=== PATIENT | female | born 1970 | race Caucasian/White ===

== ENCOUNTER 2016-12-05 15:50 | Emergency (ER) | payer OTHER ==
[2016-12-05 17:24] LABS: Hematocrit 28 % (35-47); Mean Corpuscular HGB Conc 32 g/dl (31-36); Mean Corpuscular Hemoglobin 27 pg (27-31); Mean Corpuscular Volume 83 fL (80-97); Mean Platelet Volume 10 um3 (7.4-10.4); Red Blood Count 3.39 10^6/ul (4.0-5.4); Red Cell Distribution Width 16 % (10.5-15); White Blood Count 8.3 10^3/ul (3.5-10.8)
[2016-12-05 18:37] LABS: Albumin 3.5 g/dL (3.2-5.2); BUN/Creatinine Ratio 23.9 (8-20); Calcium 9.2 mg/dL (8.6-10.3); EGFR African American 70.1 (>60); EGFR Non-African American 54.5 (>60); Globulin 3.4 g/dL (2-4); Potassium 4.7 mmol/L (3.5-5.0); Total Bilirubin 0.3 mg/dL (0.2-1.0); Total Protein 6.9 g/dL (6.4-8.9)
[2016-12-05 18:44] VITALS: BP 103/77
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
== END 2016-12-05 18:59 | disposition home or self-care (01) ==
LOC: ED 15:50
DX: R07.9 Chest pain, unspecified (principal); I10 Essential (primary) hypertension; Z79.82 Long term (current) use of aspirin; F17.210 Nicotine dependence, cigarettes, uncomplicated; J44.9 Chronic obstructive pulmonary disease, unspecified; K21.9 Gastro-esophageal reflux disease without esophagitis; Z88.0 Allergy status to penicillin
CPT/HCPCS: 36415; 80053; 84484; 85025; 93005; 99283

== ENCOUNTER 2016-12-11 07:16 | Day surgery (SDC) | payer OTHER ==
[~2016-12-11 07:16] MED LIST: Famotidine IV* 10 MG/ML 2 ML (20 mg) IV ONE
[2016-12-11] MEDS ORDERED: Iodine Strong (LUGOL'S)* 14 ML BTL ONE (07:26)
[2016-12-11] MEDS ORDERED: Ferric Subsulfate* 8 ML BTL ONE (07:26)
[2016-12-11] MEDS ORDERED: Acetic Acid 0.25%* 250 ML BTL ONE (07:26)
[2016-12-11] MEDS ORDERED: Famotidine IV* 10 MG/ML 2 ML (20 mg) ONE (07:51)
[2016-12-11] MEDS ORDERED: Ketorolac INJ* 30 MG/ML 1 ML VIAL ONE (08:13)
[2016-12-11] MEDS ORDERED: KETAMINE HCL* 50 MG/ML 10 ML VIAL ONE (08:13)
[2016-12-11] MEDS ORDERED: Lidocaine 2% PF * 5 ML VIAL ONE (08:13)
[2016-12-11] MEDS ORDERED: Dexamethasone IV* 4 MG/ML 1 ML (4 MG) ONE (08:13)
[2016-12-11] MEDS ORDERED: fentaNYL* 50 MCG/ML 2 ML VIAL (100 MCG VIAL) ONE (08:13)
[2016-12-11] MEDS ORDERED: Ondansetron INJ* 2 MG/ML VIAL ONE ×2 (08:13→10:25)
[2016-12-11] MEDS ORDERED: Propofol* 10 MG/ML 20 ML BTL IV PUSH ONE (08:13)
[2016-12-11] MEDS ORDERED: Midazolam* 1 MG/ML 5 ML VIAL (5 MG) ONE (08:14)
[2016-12-11] MEDS ORDERED: Chloroprocaine 2%* 20 ML VIAL ONE (09:23)
[2016-12-11] MEDS ORDERED: Phenylephrine IV* 40 MCG/ML 10 ML SYRINGE ONE (09:46)
[2016-12-11] MEDS ORDERED: Ondansetron INJ* 2 MG/ML VIAL IV PRN (10:23)
[2016-12-11] MEDS ORDERED: fentaNYL* 50 MCG/ML 2 ML VIAL (100 MCG VIAL) IV PRN (10:23)
[2016-12-11] MEDS ORDERED: Ibuprofen TAB* 400 MG ONE (11:19)
[2016-12-11] MEDS ORDERED: oxyCODONE/Acetamin 5/325 MG* TAB ONE (12:36)
[2016-12-11 13:25] VITALS: BP 108/79
--- NOTE | 2016-12-20 02:53 | OP ---
DATE OF OPERATION: 12/11/16 - [facility] DATE OF : 74 SURGEON: Chi Shelby MD ANESTHESIOLOGIST: Glen Robin MD ANESTHESIA: Spinal. 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 POST-OP DIAGNOSIS: Pending pathology. OPERATIVE PROCEDURE: Colposcopy and loop electrocautery excision procedure. ESTIMATED BLOOD LOSS: There was no blood loss. SPECIMEN SENT TO PATHOLOGY: Cervical LEEP biopsy. IV FLUIDS: She received 1 L of IV crystalloid fluid. URINE OUTPUT: 200 cc of clear urine. FINDINGS ON SURGERY: Colposcopy was noted to be adequate. She had a small, less than 0.5-cm acetowhite lesion at the 5 o'clock position of the exocervix abutting the transformation zone. Otherwise, normal vagina, vaginal mucosa, and normal cervix noted. DESCRIPTION OF PROCEDURE: At this point, the patient was taken to operating room, where she was identified. She was placed on the operating table where spinal anesthesia was obtained without difficulty. She was then placed in the dorsal lithotomy position, prepped and draped in the normal sterile fashion. Attention was then turned on to the patient's perineum, where the bladder was catheterized and drained of clear urine. At this point, a coated speculum was inserted into the patient's vagina and a colposcopy was then performed which revealed findings as noted above. After the colposcopy, an appropriate sized loop was chosen and a loop electrocautery excision procedure was done at a setting of 50 pure cut. The specimen was grasped and sent to Pathology. The rest of the specimen had been obtained, was further cauterized with electrocautery using a ball electrode. The cervix was noted to be hemostatic and at this point, all the instruments were removed from the patient's vagina. Sponge, lap, and needle counts were correct x2. She was then transferred to recovery room area in stable condition. [id number]/[facility] #: [id number] MTDD
== END 2016-12-11 13:42 | disposition home or self-care (01) ==
LOC: OR 07:16
PROVIDERS: ATTEND Obstetrics & Gynecology
DX: D06.0 Carcinoma in situ of endocervix (principal); I10 Essential (primary) hypertension; F17.210 Nicotine dependence, cigarettes, uncomplicated; I42.9 Cardiomyopathy, unspecified; J45.909 Unspecified asthma, uncomplicated
CPT/HCPCS: 36415; 84702; 86850; 86900; 86901; 88307; A9270-GY; J1100; J1885; J2250; J2400; J2405; J2704; J3010

== ENCOUNTER 2017-01-14 01:42 | Emergency (ER) | payer OTHER ==
[2017-01-14] MEDS ORDERED: Ibuprofen TAB* 600 MG PO ONE (01:57)
[2017-01-14] MEDS ORDERED: Cephalexin CAP* 500 MG PO ONE (01:57)
[2017-01-14] MEDS ORDERED: diPHENhydraMINE PO* 50 MG PO ONE (01:57)
[2017-01-14] MEDS ORDERED: predniSONE TAB* 20 MG PO ONE (01:58)
[2017-01-14] MEDS ORDERED: diPHENhydraMINE PO* 25 MG PO ONE (01:58)
--- NOTE | 2017-01-14 02:11 | ED ---
Skin Complaint - HPI Summary HPI Summary: Patient presents with raised lesions to the dorsum of the right wrist with surrounding erythema, warmth and pain x 2 days. She has diffuse lesions throughout her body, with worsening sxs over the dorsum over the wrist that appear to be convalescing. She states she has multiple bugs in her house and it could be from any bug but could not identify which bug had bit her multiple times. Hx includes scleroderma and CAD. The area over the wrist is pruritic with 10/10 pain with small raised erythematous lesions with a few scabbed over. She has had these types of injuries/bites before but they have always dissipated on their own. - History of Current Complaint Chief Complaint: EDRashSkinAbscess Time Seen by Provider: 01/14/17 01:46 Stated Complaint: LEFT WRIST SWELLING Hx Obtained From: Patient Hx Last Menstrual Period: 08/25/13 Onset/Duration: Started Days Ago Skin Exposure Onset/Duration: Days Ago Timing: Constant Onset Severity: Severe Current Severity: Severe Pain Intensity: 10 Pain Scale Used: 0-10 Numeric Skin Location: Diffuse, Other: - worse over the left dorsum of the wrist Character: Swelling, Pruritus, Pain, Hives, Raised, Painful Aggravating Symptom(s): Touch Alleviating Symptom(s): Cold Compresses Associated Signs & Symptoms: Tenderness Related History: Insect Bite/Sting, Possible Reaction to: Insect - Additional Pertinent History Primary Care Physician: [id number] - Allergy/Home Medications Allergies/Adverse Reactions: Allergies Allergy/AdvReac Type Severity Reaction Status Date / Time Codeine Allergy Severe sick, rash Verified 12/11/16 07:31 Lactose Intolerance (GI) Allergy Severe GI, Rash Verified 12/11/16 07:31 Latex Allergy Severe Rash Verified 12/11/16 07:31 Penicillins Allergy Severe Hives/Diff. Verified 12/11/16 07:31 Breathing/I tching Tramadol Allergy Intermediate Nausea And Verified 12/11/16 07:31 Vomiting Ampicillin Allergy Mild Rash Verified 12/11/16 07:31 Metronidazole Allergy Mild Nausea And Verified 12/06/16 14:54 Vomiting Acetaminophen AdvReac Mild GI Upset Verified 12/11/16 07:31 Aspirin AdvReac Mild HEART BURN Verified 12/11/16 07:31 peanut/cashews Allergy Severe rash, Uncoded 12/11/16 07:31 difficulty breathing wool Allergy Severe Hives Uncoded 12/06/16 15:39 berries Allergy Intermediate Rash Uncoded 12/06/16 15:39 PMH/Surg Hx/FS Hx/Imm Hx Previously Healthy: Yes Endocrine/Hematology History: Reports: Hx Blood Transfusions Denies: Hx Diabetes, Hx Anemia Cardiovascular History: Reports: Hx Cardiomegaly, Hx Congestive Heart Failure, Hx Hypertension, Other Cardiovascular Problems/Disorders - cardiomyopathy Respiratory History: Reports: Hx Asthma, Hx Chronic Obstructive Pulmonary Disease (COPD), Hx Pleural Effusion, Hx Sleep Apnea GI History: Reports: Hx Gastroesophageal Reflux Disease Musculoskeletal History: Reports: Hx Arthritis - rheumatoid, Other Musculoskeletal History - scleroderma Sensory History: Reports: Hx Contacts or Glasses - glasses Denies: Hx Hearing Aid Opthamlomology History: Reports: Hx Contacts or Glasses - glasses Neurological History: Reports: Hx Headaches, Hx Migraine, Hx Seizures Psychiatric History: Reports: Hx Anxiety, Hx Panic Disorder, Hx Substance Abuse - Immunization History Date of Tetanus Vaccine: unknown Date of Influenza Vaccine: 2013 Hx Pertussis Vaccination: No Immunizations Up to Date: Unable to Obtain/Confirm Infectious Disease History: No Infectious Disease History: Denies: Traveled Outside the [place] in Last 30 Days - Family History Known Family History: Positive: Unknown, Cardiac Disease Negative: Hypertension, Diabetes - Social History Occupation: Unemployed Lives: With Family Alcohol Use: None Hx Substance Use: Yes Substance Use Type: Reports: Marijuana Substance Use Comment - Amount & Last Used: infrequent Hx Tobacco Use: Yes Smoking Status (MU): Light Every Day Tobacco Smoker Type: Cigarettes Amount Used/How Often: 1-2 CIGARETTES, smoked 32 years Length of Time of Smoking/Using Tobacco: 27 YEARS Have You Smoked in the Last Year: No Review of Systems Constitutional: Negative Eyes: Negative Cardiovascular: Negative Respiratory: Negative Positive: no symptoms reported, see HPI Positive: Arthralgia, Myalgia Positive: Rash Neurological: Negative Psychological: Normal All Other Systems Reviewed And Are Negative: Yes Physical Exam Triage Information Reviewed: Yes Vital Signs On Initial Exam: Initial Vitals Temp Pulse Resp BP Pulse Ox 97.3 F 82 18 133/86 94 01/14/17 01:50 01/14/17 01:50 01/14/17 01:50 01/14/17 01:50 01/14/17 01:50 Vital Signs Reviewed: Yes Appearance: Positive: No Pain Distress, Thin, Cachectic Skin: Positive: Warm, Skin Color Reflects Adequate Perfusion, Other - diffuse erythematous raised pruritic lesions throughout body which seem to convalesce over dorsum of the left wrist which is exquistitely painful per patient. Head/Face: Positive: Normal Head/Face Inspection Eyes: Positive: EOMI, SILKE, Conjunctiva Clear Dental: Positive: Gross Decay/Caries @ - throughout Neck: Positive: Supple, No Lymphadenopathy Respiratory/Lung Sounds: Positive: Clear to Auscultation, Breath Sounds Present Cardiovascular: Positive: Normal, RRR Neurological: Positive: Normal, Sensory/Motor Intact, Alert, Oriented to Person Place, Time, Speech Normal Psychiatric: Positive: Normal, Affect/Mood Appropriate AVPU Assessment: Alert Diagnostics - Vital Signs Vital Signs Temp Pulse Resp BP Pulse Ox 01/14/17 01:50 97.3 F 82 18 133/86 94 - Laboratory Lab Statement: Any lab studies that have been ordered have been reviewed, and results considered in the medical decision making process. Course/Dx - Course Course Of Treatment: diffuse erythematous raised pruritic lesions throughout body which seem to convalesce over dorsum of the left wrist which is exquistitely painful per patient. Patient states many bug bites and several bugs in the house. She is encouraged to take ibuprofen for pain, prednisone, hydroxyzine and keflex for surrounding warmth and erythema around wrist. Patient will follow up with her PCP this week. No burrows visualized in fingerwebs or throughout. - Differential Diagnoses - Skin Complaint Differential Diagnoses: Drug Rash, Poison Aleena, Poison [place], Tick Born Illness - Diagnoses Provider Diagnoses: Bug bite with infection Discharge - Discharge Plan Condition: Stable Disposition: HOME Prescriptions: Cephalexin CAP* [Keflex CAP*] 500 mg PO QID #28 cap MDD 4 Triamcinolone 0.5% CREAM(NF) [Triamcinolone 0.5% CREAM*] 1 applic TOPICAL TID PRN #1 tube PRN Reason: Pain hydrOXYzine HCL TAB* [Atarax 25 MG TAB*] 25 mg PO TID PRN #10 tab PRN Reason: Itching predniSONE TAB* [Deltasone TAB*] 40 mg PO DAILY #5 tab Patient Education Materials: Insect Bite or Sting (ED) Referrals: Denis Sewell MD [Primary Care Provider] - Additional Instructions: Follow up as needed for bug bites Prednisone 40mg (1 tab) daily for 5 days every morning Keflex 4 times daily for 7 days - do not miss a dose. Hydroxyzine 25mg up to three times daily for itching Benadryl 25mg at bedtime. Triamcinalone cream 5% to affected area 3 times daily Cold compresses may help the area feel better
[2017-01-14 02:34] VITALS: BP 133/81
== END 2017-01-14 02:26 | disposition home or self-care (01) ==
LOC: ED 01:42
DX: S60.862A Insect bite (nonvenomous) of left wrist, initial encounter (principal); L08.9 Local infection of the skin and subcutaneous tissue, unspecified; W57.XXXA Bitten or stung by nonvenomous insect and other nonvenomous arthropods, initial encounter; Y92.9 Unspecified place or not applicable; F17.210 Nicotine dependence, cigarettes, uncomplicated
CPT/HCPCS: 99282; A9270-GY; J7512

== ENCOUNTER 2017-01-28 14:40 | Emergency (ER) | payer OTHER ==
[2017-01-28 16:30] VITALS: BP 130/70
[2017-01-28] MEDS ORDERED: NS 0.9% 1000 ML* 1,000 ML IV ONE (16:35)
--- NOTE | 2017-01-29 15:32 | ED ---
Jorge Hernandez Auryana, scribed for Joni George MD on 01/28/17 at 1656 . Dizziness - HPI Summary HPI Summary: 46 year old female presents with dehydration starting this afternoon after walking outside. Patient states that she walked to [facility] and was unable to walk back due to the heat - c/o dehydration, GUTHRIE, back and bilateral leg pain. Since being in ED, patient reports improvement but states that she is very hungry. PMHx is significant for RA, seizures, cervical CA, anxiety, and asthma. - History Of Current Complaint Chief Complaint: EDGeneral Stated Complaint: DIZZINESS Time Seen by Provider: 01/28/17 16:05 Hx Obtained From: Patient Onset/Duration: Still Present Timing: Constant Severity Initially: Moderate Severity Currently: Mild Character: Weak Associated Signs And Symptoms: Positive: Other: - back pain, bilateral leg pain , dehydration - Allergies/Home Medications Allergies/Adverse Reactions: Allergies Allergy/AdvReac Type Severity Reaction Status Date / Time Codeine Allergy Severe sick, rash Verified 01/28/17 16:30 Lactose Intolerance (GI) Allergy Severe GI, Rash Verified 01/28/17 16:30 Latex Allergy Severe Rash Verified 01/28/17 16:30 Penicillins Allergy Severe Hives/Diff. Verified 01/28/17 16:30 Breathing/I tching Tramadol Allergy Intermediate Nausea And Verified 01/28/17 16:30 Vomiting Ampicillin Allergy Mild Rash Verified 01/28/17 16:30 Metronidazole Allergy Mild Nausea And Verified 01/28/17 16:30 Vomiting Acetaminophen AdvReac Mild GI Upset Verified 01/28/17 16:30 Aspirin AdvReac Mild HEART BURN Verified 01/28/17 16:30 peanut/cashews Allergy Severe rash, Uncoded 01/28/17 16:30 difficulty breathing wool Allergy Severe Hives Uncoded 12/06/16 15:39 berries Allergy Intermediate Rash Uncoded 12/06/16 15:39 PMH/Surg Hx/FS Hx/Imm Hx Endocrine/Hematology History: Reports: Hx Blood Transfusions Denies: Hx Diabetes, Hx Anemia Cardiovascular History: Reports: Hx Cardiomegaly, Hx Congestive Heart Failure, Hx Hypertension, Other Cardiovascular Problems/Disorders - cardiomyopathy Respiratory History: Reports: Hx Asthma, Hx Chronic Obstructive Pulmonary Disease (COPD), Hx Pleural Effusion, Hx Sleep Apnea GI History: Reports: Hx Gastroesophageal Reflux Disease Musculoskeletal History: Reports: Hx Arthritis - rheumatoid, Other Musculoskeletal History - scleroderma Sensory History: Reports: Hx Contacts or Glasses - glasses Denies: Hx Hearing Aid Opthamlomology History: Reports: Hx Contacts or Glasses - glasses Neurological History: Reports: Hx Headaches, Hx Migraine, Hx Seizures Psychiatric History: Reports: Hx Anxiety, Hx Panic Disorder, Hx Substance Abuse - Immunization History Date of Tetanus Vaccine: unknown Date of Influenza Vaccine: 2013 Infectious Disease History: Denies: Traveled Outside the [place] in Last 30 Days - Family History Known Family History: Positive: Cardiac Disease Negative: Hypertension, Diabetes - Social History Alcohol Use: None Hx Substance Use: Yes Substance Use Type: Reports: Marijuana Substance Use Comment - Amount & Last Used: infrequent Hx Tobacco Use: Yes Smoking Status (MU): Light Every Day Tobacco Smoker Type: Cigarettes Amount Used/How Often: 1-2 CIGARETTES, smoked 32 years Length of Time of Smoking/Using Tobacco: 27 YEARS Have You Smoked in the Last Year: No Review of Systems Positive: Other - dehydration Eyes: Negative ENT: Negative Cardiovascular: Negative Respiratory: Negative Gastrointestinal: Negative Genitourinary: Negative Positive: Other - back pain, bilateral LE pain Skin: Negative Positive: Headache Psychological: Normal All Other Systems Reviewed And Are Negative: Yes Physical Exam - Summary Physical Exam Summary: VITAL SIGNS: Reviewed. GENERAL: Patient is a well-developed and nourished female who is lying comfortable in the stretcher. Patient is not in any acute respiratory distress. HEAD AND FACE: No signs of trauma. No ecchymosis, hematomas or skull depressions. No sinus tenderness. EYES: PERRLA, EOMI x 2, No injected conjunctiva, no nystagmus. EARS: Hearing grossly intact. Ear canals and tympanic membranes are within normal limits. MOUTH: Oropharynx within normal limits. NECK: Supple, trachea is midline, no adenopathy, no JVD, no carotid bruit, no c- spine tenderness, neck with full ROM. CHEST: Symmetric, no tenderness at palpation LUNGS: Clear to auscultation bilaterally. No wheezing or crackles. CVS: Regular rate and rhythm, S1 and S2 present, no murmurs or gallops appreciated. ABDOMEN: Soft, non-tender. No signs of distention. No rebound no guarding, and no masses palpated. Bowel sounds are normal. EXTREMITIES: FROM in all major joints, no edema, no cyanosis or clubbing. NEURO: Alert and oriented x 3. No acute neurological deficits. Speech is normal and follows commands. SKIN: Dry and warm. Triage Information Reviewed: Yes Vital Signs On Initial Exam: Initial Vitals Temp Pulse Resp BP Pulse Ox 98.5 F 84 20 130/72 99 01/28/17 14:51 01/28/17 14:51 01/28/17 14:51 01/28/17 14:51 01/28/17 14:51 Vital Signs Reviewed: Yes Diagnostics - Vital Signs Vital Signs Temp Pulse Resp BP Pulse Ox 01/28/17 14:51 98.5 F 84 20 130/72 99 - Laboratory Lab Statement: Any lab studies that have been ordered have been reviewed, and results considered in the medical decision making process. Dizzy Course/Dx - Course Assessment/Plan: 46 year old female presents with dehydration starting this afternoon after walking outside. Patient states that she walked to [place] and was unable to walk back due to the heat - c/o dehydration, GUTHRIE, back and bilateral leg pain. Since being in ED, patient reports improvement but states that she is very hungry. PMHx is significant for RA, seizures, cervical CA, anxiety, and asthma. After examination she reports that she is feeling better. I order blood work and fluids for rehydration. Nurse reports patient refused blood work and fluids. She reports she wants to go home. She understands the benefits vs risk of leaving AMA. I extensively discussed with the patient the benefits and risk of leaving AMA. I also discussed the alternatives to leaving AMA, however, the patient still insist to leave the hospital AMA.. The primary nurse and the charge nurse also strongly recommended that the patient should not leave AMA. Patient understands the risk of leaving AMA, which includes but is not restricted to . Patient is Alert and oriented times three and patient verbalizes understanding. Patient has full capacity and is cognitively intact. Patient signed the AMA form. Patient was also advised to return to ED if he changes his mind or if the symptoms worsen or other symptoms appear. Patient understands and agrees. - Diagnoses Provider Diagnoses: Dehydration Discharge - Discharge Plan Condition: Stable Disposition: HOME Patient Education Materials: Dehydration (ED) Referrals: Denis Sewell MD [Primary Care Provider] - 2 Days The documentation as recorded by the Jorge leyva Auryana accurately reflects the service I personally performed and the decisions made by me, Joni George MD.
== END 2017-01-28 17:14 | disposition home or self-care (01) ==
LOC: ED 14:40
DX: E86.0 Dehydration (principal); M54.9 Dorsalgia, unspecified; M79.605 Pain in left leg; M79.604 Pain in right leg; F17.210 Nicotine dependence, cigarettes, uncomplicated; R51 Headache
CPT/HCPCS: 99282

== ENCOUNTER 2019-02-18 15:52 | Emergency (ER) | payer OTHER ==
--- NOTE | 2019-02-18 16:44 | ED ---
HPI Chest Pain - HPI Summary HPI Summary: 48 year old F brought in by ambulance to [facility] with a chief complaint of chest pain after having an anxiety attack a few hours ago. The patient rates the pain 10/10 in severity. Symptoms aggravated by nothing. Symptoms alleviated by nothing. Patient reports hypertension. Patient has hx rheumatoid arthritis, anxiety, and HTN. She states that today, while she was at home, she felt that she was having an anxiety attack lasting longer than normal. 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 - History of Current Complaint Time Seen by Provider: 02/18/19 16:08 Hx Obtained From: Patient Onset/Duration: Started Hours Ago, Still Present Timing: Constant Current Severity: Severe Pain Intensity: 10 Pain Scale Used: 0-10 Numeric Aggravating Factor(s): Nothing Alleviating Factor(s): Nothing Associated Signs and Symptoms: Positive: Other: - anxiety, hypertension - Additional Pertinent History Primary Care Physician: FRIDA - Allergy/Home Medications Allergies/Adverse Reactions: Allergies Allergy/AdvReac Type Severity Reaction Status Date / Time codeine Allergy Severe Rash Verified 02/18/19 21:52 lactose Allergy Severe GI Upset Verified 02/18/19 21:52 Penicillins Allergy Severe Hives/Diff. Verified 02/18/19 21:52 Breathing/I tching metronidazole Allergy Mild Nausea And Verified 02/18/19 21:52 Vomiting ampicillin Allergy Unknown Difficulty Verified 02/18/19 21:52 Breathing tramadol Allergy Unknown Rash Verified 02/18/19 21:52 aspirin AdvReac Mild Heartburn Verified 02/18/19 21:52 acetaminophen AdvReac Unknown GI Upset Verified 02/18/19 21:52 peanut/cashews Allergy Severe rash, Uncoded 02/18/19 21:52 difficulty breathing wool Allergy Severe Hives Uncoded 02/18/19 21:52 berries Allergy Intermediate Rash Uncoded 02/18/19 21:52 Home Medications: Home Medications Ibuprofen TAB* [Advil TAB*] 200 - 400 mg PO DAILY PRN 02/18/19 [History Confirmed 02/18/19] Metoprolol Succinate XL TAB* [Toprol XL TAB*] 25 mg PO DAILY 02/18/19 [History Confirmed 02/18/19] PMH/Surg Hx/FS Hx/Imm Hx Previously Healthy: No Endocrine/Hematology History: Reports: Hx Blood Transfusions Denies: Hx Diabetes, Hx Anemia Cardiovascular History: Reports: Hx Cardiomegaly, Hx Congestive Heart Failure, Hx Hypertension, Other Cardiovascular Problems/Disorders - cardiomyopathy Respiratory History: Reports: Hx Asthma, Hx Chronic Obstructive Pulmonary Disease (COPD), Hx Pleural Effusion, Hx Sleep Apnea GI History: Reports: Hx Gastroesophageal Reflux Disease Musculoskeletal History: Reports: Hx Arthritis - rheumatoid, Other Musculoskeletal History - scleroderma Sensory History: Reports: Hx Contacts or Glasses - glasses Denies: Hx Hearing Aid Opthamlomology History: Reports: Hx Contacts or Glasses - glasses Neurological History: Reports: Hx Headaches, Hx Migraine, Hx Seizures Psychiatric History: Reports: Hx Anxiety, Hx Panic Disorder, Hx Substance Abuse - Surgical History Surgery Procedure, Year, and Place: n/a - Immunization History Date of Tetanus Vaccine: unknown Date of Influenza Vaccine: 2013 Immunizations Up to Date: Unable to Obtain/Confirm Infectious Disease History: No Infectious Disease History: Denies: Traveled Outside the [place] in Last 30 Days - Family History Known Family History: Positive: Cardiac Disease Negative: Hypertension, Diabetes - Social History Alcohol Use: None Hx Substance Use: Yes Substance Use Type: Reports: Marijuana Substance Use Comment - Amount & Last Used: infrequent Hx Tobacco Use: Yes Smoking Status (MU): Light Every Day Tobacco Smoker Type: Cigarettes Amount Used/How Often: 1-2 CIGARETTES, smoked 32 years Length of Time of Smoking/Using Tobacco: 27 YEARS Have You Smoked in the Last Year: No Review of Systems Positive: Chest Pain, Other - hypertension Positive: Other - anxiety All Other Systems Reviewed And Are Negative: Yes Physical Exam - Summary Physical Exam Summary: GENERAL: Patient is a skinny and disheveled F who is lying comfortable in the stretcher. Patient is not in any acute respiratory distress. HEAD AND FACE: Normocephalic EYES: PERRLA, EOMI x 2. EARS: Hearing grossly intact. MOUTH: Oropharynx within normal limits. NECK: Supple, trachea is midline, no adenopathy, no JVD, no carotid bruit. CHEST: Symmetric, no tenderness at palpation LUNGS: Clear to auscultation bilaterally. No wheezing or crackles. CVS: Regular rate and rhythm, S1 and S2 present, no murmurs or gallops appreciated. ABDOMEN: Soft, non-tender. Bowel sounds are normal. No abnormal abdominal pulsations. EXTREMITIES: Full ROM in all major joints, no edema, no cyanosis or clubbing. NEURO: Alert and oriented x 3. No acute neurological deficits. Speech is normal and follows commands. SKIN: Dry and warm Triage Information Reviewed: Yes Vital Signs On Initial Exam: Initial Vitals Temp Pulse Resp BP Pulse Ox 99 F 90 20 172/111 99 02/18/19 16:07 02/18/19 16:07 02/18/19 16:07 02/18/19 16:07 02/18/19 16:07 Vital Signs Reviewed: Yes Diagnostics - Vital Signs Vital Signs Temp Pulse Resp BP Pulse Ox 02/18/19 16:24 99 12 100 02/18/19 16:23 94 172/111 100 02/18/19 16:07 99 F 90 20 172/111 99 - Laboratory Result Diagrams: 02/18/19 18:55 02/18/19 18:56 Lab Statement: Any lab studies that have been ordered have been reviewed, and results considered in the medical decision making process. - EKG 1625 Cardiac Rate: NL - 94 BPM EKG Rhythm: Sinus Rhythm Summary of EKG Findings: Normal sinus rhythm at 94 BPM, incomplete RBBB, LVH. Chest Pain Course/Dx - Course Course Of Treatment: 48 year old F brought in by ambulance to [facility] with a chief complaint of chest pain after having an anxiety attack a few hours ago. Patient reports hypertension. Patient has hx rheumatoid arthritis, anxiety, and HTN. She states that today, she was at home, and felt that she was having an anxiety attack lasting longer than normal. 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 Upon arrival to ED, the patient is feeling a lot better, refusing bloodwork at this time and requesting only pain medication for her knee which has been hurting for years due to her rheumatoid arthritis. 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 EKG shows normal sinus rhythm at 94 BPM, incomplete RBBB, LVH. She was given lisinopril and Percocet in the ED course. I discussed results with patient in great detail and recommended bloodwork. However, patient is refusing bloodwork at this time and she wants to sign out against medical advice. Patient is awake, alert, oriented, and seemed capable of making informed decisions, and able to verbalize risk of adverse outcomes including disabilities and/or and so she was allowed to sign out against medical advice. Patient was given strict return precautions. Patient will follow up with her primary care provider in 1- 3 days. Patient initially wanted to leave against medical advice but then agreed to get bloodwork done. Patient will be signed out to Dr. Brower upon shift change at 19:00 02/18/19, awaiting bloodwork and CXR, and pending re- evaluation and disposition. - Diagnoses Provider Diagnoses: Chest pain, Renal insufficiency Discharge - Sign-Out/Discharge Documenting (check all that apply): Sign-Out Patient Signing out patient TO: Moises Brower - awaiting bloodwork and CXR, and pending re -evaluation and disposition Patient Received Moderate/Deep Sedation with Procedure: No - Discharge Plan Condition: Fair Disposition: AGAINST MEDICAL ADVICE Patient Education Materials: Chest Pain (ED), Hypertension (ED), Anxiety (ED) Referrals: Denis Sewell MD [Retired//Other] - 1 Day Additional Instructions: You are not being discharged. You are leaving against medical advice. Follow up with your primary care provider in 1-3 days. Return to the Emergency Department for new or worsening symptoms. - Billing Disposition and Condition Condition: FAIR Disposition: Against Medical Advice - Attestation Statements Document Initiated by Navin: Yes Documenting Scribe: Gina Andrews Provider For Whom Navin is Documenting (Include Credential): Dharmesh Helton MD Scribe Attestation: Gina Hernandez, scribed for Dharmesh Helton MD on 02/20/19 at 0810. Scribe Documentation Reviewed: Yes Provider Attestation: The documentation as recorded by the scribeGina accurately reflects the service I personally performed and the decisions made by me, Dharmesh Hetlon MD Status of Scribe Document: Viewed
[2019-02-18] MEDS ORDERED: Lisinopril TAB* 10 MG PO ONE (16:47)
[2019-02-18] MEDS ORDERED: oxyCODONE/Acetamin 5/325 MG* TAB PO ONE (16:49)
[2019-02-18 19:08] LABS: ABS Basophils 0.1 10^3/ul (0-0.2); ABS Eosinophils 0.7 10^3/ul (0-0.6); ABS Lymphocytes 1.7 10^3/ul (1.0-4.8); ABS Monocytes 0.4 10^3/ul (0-0.8); ABS Neutrophils 5.6 10^3/ul (1.5-7.7); Eosinophil % 8.3 %; Hematocrit 26 % (35-47); Hemoglobin 8.3 g/dL (12.0-16.0); Mean Corpuscular HGB Conc 32 g/dL (31-36); Mean Corpuscular Hemoglobin 24 pg (27-31); Mean Corpuscular Volume 76 fL (80-97); Nucleated Red Blood Cells % 0.1; Platelet Count 234 10^3/uL (150-450); Red Cell Distribution Width 22 % (10-15); White Blood Count 8.5 10^3/uL (3.5-10.8)
--- NOTE | 2019-02-18 19:18 | ED ---
Progress - Progress Note Progress Note: Patient is received as a sign-out from Dr. Helton to Dr. Brower at 1900 02/18/19 shift change pending lab results and CXR for this patient. 2005 - Patient reports that she came in for "high" anxiety, chest pain and bilateral knee pain. She states chest pain is located at one area at her mid- sternal area and characterizes the pain as a tightness. She states that she was also dizzy and diaphoretic at the time of the episode. Patient reports that the episode of chest pain lasted around ten minutes and reports that the pain resolved spontaneously. She relates the chest pain to her anxiety. Patient reports similar episodes previously but notes today's episode was more severe. Patient notes that she has been having diarrhea. She states that she has been taking her medications except for lisinopril as she ran out. She states that she has no current PCP. Patient reports she is on allergy meds, a medication for GERD, lisinopril, and anti-arrhythmia medication. She is unsure of lean specialist's name, but she states that she does not go to him anymore. Patient is agreeable with admission to [facility]. - EKG/XRAY/CT XRAY: chest Xray Comments: HYPERINFLATION, NO ACUTE PROCESS, PENDING OFFICIAL REPORT Re-Evaluation - Re-Evaluation First Eval Re-Evaluation Time: 19:27 Comment: Charge Nurse Keira notifies ED physician of trop of 0.04 for patient at this time. Second Eval Re-Evaluation Time: 20:06 Comment: 2005 - Patient reports that she came in for "high" anxiety, chest pain and bilateral knee pain. She states chest pain is located at one area at her mid -sternal area and characterizes the pain as a tightness. She states that she was also dizzy and diaphoretic at the time of the episode. Patient reports that the episode of chest pain lasted around ten minutes and reports that the pain resolved spontaneously. She relates the chest pain to her anxiety. Patient reports similar episodes previously but notes today's episode was more severe. Patient notes that she has been having diarrhea. She states that she has been taking her medications except for lisinopril as she ran out. She states that she has no current PCP. Patient reports she is on allergy meds, a medication for GERD, lisinopril, and anti-arrhythmia medication. She is unsure of lean specialist's name, but she states that she does not go to him anymore. Patient is agreeable with admission to [facility]. Third Eval Re-Evaluation Time: 01:22 Comment: Patient is refusing to be admitted at this time. Discussed risks of MD , brain bleed, kidney failure, arrhythmias, permanent disability and with the patient. She understands but still insists that she leaves. Patient to leave AMA. Course/Dx - Course Course Of Treatment: Patient is received as a sign-out from Dr. Helton to Dr. Brower at 1900 02/18/19 shift change pending lab results and CXR for this patient. Labs showed RBC 3.4, Hgb 8.3, Hct 26, MCV 76, MCH 24, RDW 22, absolute eos 0.7 , D-dimer 398, chloride 112, carbon dioxide 21, BUN 41, creatinine 1.72, BUN/ creatinine ratio 23.8, glucose 120, lactic acid 0.9, AST 8, ALT 3, trop 0.04, BNP 1007. CXR SHOWED HYPERINFLATION, NO ACUTE PROCESS. 2005 - Patient reports that she came in for "high" anxiety, chest pain and bilateral knee pain. She states chest pain is located at one area at her mid-sternal area and characterizes the pain as a tightness. She states that she was also dizzy and diaphoretic at the time of the episode. Patient reports that the episode of chest pain lasted around ten minutes and reports that the pain resolved spontaneously. She relates the chest pain to her anxiety. Patient reports similar episodes previously but notes today's episode was more severe. Patient notes that she has been having diarrhea. She states that she has been taking her medications except for lisinopril as she ran out. She states that she has no current PCP. Patient reports she is on allergy meds, a medication for GERD, lisinopril, and anti-arrhythmia medication. She is unsure of lean specialist's name, but she states that she does not go to him anymore. Patient is agreeable with admission to [facility]. Patient's case was discussed with Dr. Sorto, Dr. Sorto will evaluate for admission. 0122 - Patient is refusing to be admitted at this time. Discussed risks of MD, brain bleed, kidney failure, arrhythmias, permanent disability and with the patient. She understands but still insists that she leaves. Patient to leave AMA. - Diagnoses Provider Diagnoses: Chest pain, Renal insufficiency - Provider Notifications Discussed Care Of Patient With: Zach Sorto Time Discussed With Above Provider: 20:31 Instructed by Provider To: Other - Patient's case was discussed with Dr. Sorto, Dr. Culver evaluate for admission. Discharge - Sign-Out/Discharge Documenting (check all that apply): Patient Departure - AMA, Receiving Sign-Out Receiving patient FROM: Dharmesh Helton Patient Received Moderate/Deep Sedation with Procedure: No - Discharge Plan Condition: Fair Disposition: AGAINST MEDICAL ADVICE Patient Education Materials: Chest Pain (ED), Hypertension (ED), Anxiety (ED) Referrals: Denis Sewell MD [Retired//Other] - 1 Day Additional Instructions: You are not being discharged. You are leaving against medical advice. Follow up with your primary care provider in 1-3 days. Return to the Emergency Department for new or worsening symptoms. - Attestation Statements Document Initiated by Scribe: Yes Documenting Scribe: SAE CRISTINA Provider For Whom Navin is Documenting (Include Credential): KOBY BROWER MD Scribe Attestation: I, SAE CRISTINA, scribed for KOBY BROWER MD on 02/19/19 at 0122. Status of Scribe Document: Ready
[2019-02-18 19:20] LABS: ALT 3 U/L (7-52); AST 8 U/L (13-39); Albumin 3.8 g/dL (3.2-5.2); Albumin/Globulin Ratio 1.2 (1-3); Alkaline Phosphatase 64 U/L (34-104); BUN/Creatinine Ratio 23.8 (8-20); Blood Urea Nitrogen 41 mg/dL (6-24); CO2 Carbon Dioxide 21 mmol/L (22-32); Calcium 8.7 mg/dL (8.6-10.3); EGFR African American 38.6 (>60); EGFR Non-African American 31.9 (>60); Globulin 3.1 g/dL (2-4); Glucose 120 mg/dL (70-100); Potassium 3.8 mmol/L (3.5-5.0); Sodium 140 mmol/L (135-145); Total Protein 6.9 g/dL (6.4-8.9)
[2019-02-18 19:23] LABS: Activated Partial Thrombo Time 34.9 seconds (26.0-38.0)
[2019-02-18 19:24] LABS: Anion Gap 7 mmol/L (2-11); Chloride 112 mmol/L (101-111)
[2019-02-18 19:25] LABS: Troponin I 0.04 ng/mL (<0.04)
[2019-02-18 22:28] LABS: Troponin I 0.05 ng/mL (<0.04)
[2019-02-19 01:53] VITALS: BP 161/95
== END 2019-02-19 02:33 | disposition left against medical advice (07) ==
LOC: ED 15:52
DX: R07.89 Other chest pain (principal); N28.9 Disorder of kidney and ureter, unspecified; I45.10 Unspecified right bundle-branch block; F41.9 Anxiety disorder, unspecified; I11.0 Hypertensive heart disease with heart failure; I50.9 Heart failure, unspecified; J44.9 Chronic obstructive pulmonary disease, unspecified; M06.9 Rheumatoid arthritis, unspecified; Z88.6 Allergy status to analgesic agent; Z88.1 Allergy status to other antibiotic agents; Z91.011 Allergy to milk products; Z88.5 Allergy status to narcotic agent; Z91.018 Allergy to other foods; Z91.010 Allergy to peanuts; Z88.0 Allergy status to penicillin; Z91.048 Other nonmedicinal substance allergy status; Z87.891 Personal history of nicotine dependence
CPT/HCPCS: 36415; 71045; 80053; 83605; 83880; 84484; 85025; 85379; 85610; 85730; 93005; 99284; A9270-GY

== ENCOUNTER 2019-03-26 22:22 | Inpatient (IN) | payer OTHER ==
[2019-03-27 01:03] LABS: ABS Basophils 0.1 10^3/ul (0-0.2); ABS Eosinophils 0.4 10^3/ul (0-0.6); ABS Lymphocytes 1.6 10^3/ul (1.0-4.8); ABS Monocytes 0.3 10^3/ul (0-0.8); ABS Neutrophils 18.6 10^3/ul (1.5-7.7); Eosinophil % 1.7 %; Hematocrit 29 % (35-47); Hemoglobin 8.5 g/dL (12.0-16.0); Lymphocyte % 7.7 %; Mean Corpuscular HGB Conc 29 g/dL (31-36); Mean Corpuscular Hemoglobin 24 pg (27-31); Mean Corpuscular Volume 83 fL (80-97); Mean Platelet Volume 9.3 fL (7.4-10.4); Platelet Count 433 10^3/uL (150-450); Red Blood Count 3.52 10^6 /uL (3.70-4.87); Red Cell Distribution Width 20 % (10-15)
[2019-03-27 01:14] LABS: ALT 10 U/L (7-52); AST 24 U/L (13-39); Albumin 3.8 g/dL (3.2-5.2); Albumin/Globulin Ratio 1.2 (1-3); Alkaline Phosphatase 89 U/L (34-104); BUN/Creatinine Ratio 19.3 (8-20); Blood Urea Nitrogen 32 mg/dL (6-24); Calcium 8.6 mg/dL (8.6-10.3); Chloride 106 mmol/L (101-111); EGFR African American 40.2 (>60); EGFR Non-African American 33.3 (>60); Globulin 3.1 g/dL (2-4); Glucose 219 mg/dL (70-100); Potassium 3.9 mmol/L (3.5-5.0); Sodium 138 mmol/L (135-145); Total Protein 6.9 g/dL (6.4-8.9)
[2019-03-27 01:16] LABS: Anion Gap 20 mmol/L (2-11); CO2 Carbon Dioxide 12 mmol/L (22-32)
[2019-03-27] MEDS ORDERED: Albuterol/Ipratropium NEB.SOL* Albuterol 2.5 MG/Ipratropium 0.5 MG 3 ML INH ONE (01:25)
[2019-03-27] MEDS ORDERED: LORazepam INJ* 2 MG/ML 1 ML VIAL IM ONE (01:27)
[2019-03-27] MEDS ORDERED: Lorazepam PYXIS KEY PRN ×3 (01:27→17:26)
[2019-03-27 01:30] LABS: Acetaminophen < 15 mcg/mL; Alcohol < 10 mg/dL (<10); Salicylate < 2.50 mg/dL (<30)
--- NOTE | 2019-03-27 01:33 | ED ---
Hypertension - HPI Summary HPI Summary: This pt is a Y/O F presenting to [facility] with a CC of elevated BP. She states that she does not have a PCP and that she wants her BP to drop. She hasnt taking her medications in months. She states that she has anxiety when she goes into a hypertensive episode. She stated that she has a cough and feels liquid in her chest. She denies any chest pain, V/N/D, and abdominal pains. She states that she has medications for anxiety but states that she does not take those pills either. She denies any SI and HI. She has no aggravating or alleviating factors. She has a PMHx of hypertension and anxiety. Home Medications Medication Instructions Recorded Confirmed Type Lisinopril [Zestril 20 MG-] 20 mg PO DAILY #30 tab 06/21/16 03/26/19 Rx Ibuprofen TAB* [Advil TAB*] 200 - 400 mg PO DAILY PRN 02/18/19 03/26/19 History Metoprolol Succinate XL TAB* 25 mg PO DAILY 02/18/19 03/26/19 History [Toprol XL TAB*] - History of Current Complaint Chief Complaint: EDMentalHealth Stated Complaint: ANXIETY PER EMS Time Seen by Provider: 03/26/19 23:53 Hx Obtained From: Patient Onset/Duration: Started Hours Ago - 3, Still Present Timing: Constant, Lasting Hours - 3 Aggravating Factor(s): Nothing Alleviating Factor(s): Nothing Associated Signs & Symptoms: Negative - chest pain, V/N/D, and abdominal pains. , Anxiety/Stress - coughs, fluid in her lungs, Other: - Allergies/Home Medications Allergies/Adverse Reactions: Allergies Allergy/AdvReac Type Severity Reaction Status Date / Time codeine Allergy Severe Rash Verified 02/18/19 21:52 lactose Allergy Severe GI Upset Verified 02/18/19 21:52 Penicillins Allergy Severe Hives/Diff. Verified 02/18/19 21:52 Breathing/I tching metronidazole Allergy Mild Nausea And Verified 02/18/19 21:52 Vomiting ampicillin Allergy Unknown Difficulty Verified 02/18/19 21:52 Breathing tramadol Allergy Unknown Rash Verified 02/18/19 21:52 aspirin AdvReac Mild Heartburn Verified 02/18/19 21:52 acetaminophen AdvReac Unknown GI Upset Verified 02/18/19 21:52 peanut/cashews Allergy Severe rash, Uncoded 02/18/19 21:52 difficulty breathing wool Allergy Severe Hives Uncoded 02/18/19 21:52 berries Allergy Intermediate Rash Uncoded 02/18/19 21:52 PMH/Surg Hx/FS Hx/Imm Hx Previously Healthy: Yes Endocrine/Hematology History: Reports: Hx Blood Transfusions Denies: Hx Diabetes, Hx Anemia Cardiovascular History: Reports: Hx Cardiomegaly, Hx Congestive Heart Failure, Hx Hypertension, Other Cardiovascular Problems/Disorders - cardiomyopathy Respiratory History: Reports: Hx Asthma, Hx Chronic Obstructive Pulmonary Disease (COPD), Hx Pleural Effusion, Hx Sleep Apnea GI History: Reports: Hx Gastroesophageal Reflux Disease Musculoskeletal History: Reports: Hx Arthritis - rheumatoid, Other Musculoskeletal History - scleroderma Sensory History: Reports: Hx Contacts or Glasses - glasses Denies: Hx Hearing Aid Opthamlomology History: Reports: Hx Contacts or Glasses - glasses Neurological History: Reports: Hx Headaches, Hx Migraine, Hx Seizures Psychiatric History: Reports: Hx Anxiety, Hx Panic Disorder, Hx Substance Abuse - Surgical History Surgery Procedure, Year, and Place: n/a - Immunization History Date of Tetanus Vaccine: unknown Date of Influenza Vaccine: 2013 Immunizations Up to Date: Yes Infectious Disease History: No Infectious Disease History: Denies: Traveled Outside the [place] in Last 30 Days - Family History Known Family History: Positive: Cardiac Disease Negative: Hypertension, Diabetes - Social History Alcohol Use: None Hx Substance Use: Yes Substance Use Type: Reports: Marijuana Substance Use Comment - Amount & Last Used: infrequent Hx Tobacco Use: Yes Smoking Status (MU): Heavy Every Day Tobacco Smoker Type: Cigarettes Amount Used/How Often: 1-2 CIGARETTES, smoked 32 years Length of Time of Smoking/Using Tobacco: 27 YEARS Have You Smoked in the Last Year: No Review of Systems Cardiovascular: Other - Hypertensive Negative: Chest Pain Positive: Cough, Other - fluid in lungs . Negative: Shortness Of Breath Negative: Abdominal Pain, Vomiting, Diarrhea, Nausea Negative: Headache Psychological: Other - NEGATIVE: SI and HI Positive: Anxious All Other Systems Reviewed And Are Negative: Yes Physical Exam - Summary Physical Exam Summary: General: Well-developed, Cachectic appearing, mildly distressed female. mildly agitated and anxious appearing. Pt is a poor historian. HEENT: Normocephalic, Atraumatic. Eyes: Conjuctiva normal, PERRL. Ears: TMs within normal limits. Nares: (-) discharge, (-) erythema. Oropharynx: Clear, mucous membranes moist, (-) exudates. Neck: Soft, FROM, (-) lymphadenopathy, (-) thyromegaly, (-) JVD. Cardiovascular: Normal sinus rhythm, (-) murmur. Lungs: Clear to auscultation bilaterally (-) wheezes, (-) rales, (-) rhonchi. Abdomen: Soft, non-tender, non-distended, (-) organomegaly, normal bowel sounds. Back: (-) CVA tenderness Extremities: No edema. Skin: Warm, dry, (-) rash. Neuro: Alert and oriented x3, no focal deficits. Psychiatric: Mood normal, affect normal. Triage Information Reviewed: Yes Vital Signs On Initial Exam: Initial Vitals Temp Pulse Resp BP Pulse Ox 96.2 F 110 22 190/129 0 03/26/19 22:25 03/26/19 22:25 03/26/19 22:25 03/26/19 22:25 03/26/19 22:25 Vital Signs Reviewed: Yes Diagnostics - Vital Signs Vital Signs Temp Pulse Resp BP Pulse Ox 03/27/19 01:00 112 87 03/27/19 00:50 109 179/155 95 03/27/19 00:42 108 03/27/19 00:20 195/134 03/26/19 23:50 112 198/131 98 03/26/19 23:20 107 217/143 93 03/26/19 23:19 110 93 03/26/19 22:25 96.2 F 110 22 190/129 0 - Laboratory Lab Results: Lab Results 03/27/19 03/27/19 Range/Units 00:46 00:46 WBC 21.0 H (3.5-10.8) 10^3/uL RBC 3.52 L (3.70-4.87) 10^6 /uL Hgb 8.5 L (12.0-16.0) g/dL Hct 29 L (35-47) % MCV 83 (80-97) fL MCH 24 L (27-31) pg MCHC 29 L (31-36) g/dL RDW 20 H (10-15) % Plt Count 433 (150-450) 10^3/uL MPV 9.3 (7.4-10.4) fL Neut % (Auto) 88.5 % Lymph % (Auto) 7.7 % [place] % (Auto) 1.6 % Eos % (Auto) 1.7 % Baso % (Auto) 0.5 % Absolute Neuts (auto) 18.6 H (1.5-7.7) 10^3/ul Absolute Lymphs (auto) 1.6 (1.0-4.8) 10^3/ul Absolute Monos (auto) 0.3 (0-0.8) 10^3/ul Absolute Eos (auto) 0.4 (0-0.6) 10^3/ul Absolute Basos (auto) 0.1 (0-0.2) 10^3/ul Absolute Nucleated RBC 0.0 10^3/ul Nucleated RBC % 0.0 Sodium 138 (135-145) mmol/L Potassium 3.9 (3.5-5.0) mmol/L Chloride 106 (101-111) mmol/L Carbon Dioxide 12 L* (22-32) mmol/L Anion Gap 20 H (2-11) mmol/L BUN 32 H (6-24) mg/dL Creatinine 1.66 H (0.51-0.95) mg/dL Est GFR ( Amer) 40.2 (>60) Est GFR (Non-Af Amer) 33.3 (>60) BUN/Creatinine Ratio 19.3 (8-20) Glucose 219 H (70-100) mg/dL Calcium 8.6 (8.6-10.3) mg/dL Total Bilirubin 0.50 (0.2-1.0) mg/dL AST 24 (13-39) U/L ALT 10 (7-52) U/L Alkaline Phosphatase 89 (34-104) U/L Total Protein 6.9 (6.4-8.9) g/dL Albumin 3.8 (3.2-5.2) g/dL Globulin 3.1 (2-4) g/dL Albumin/Globulin Ratio 1.2 (1-3) TSH Pending Salicylates Pending Acetaminophen Pending Serum Alcohol Pending Result Diagrams: 03/27/19 00:46 03/27/19 00:46 Lab Statement: Any lab studies that have been ordered have been reviewed, and results considered in the medical decision making process. - Radiology CXR Radiology Interpretation Completed By: ED Physician Summary of Radiographic Findings: PNA in the right lower lobe. Pending offical review. Hypertension Course/Dx - Course Course Of Treatment: This pt is a Y/O F presenting to [facility] with a CC of elevated BP. She states that she does not have a PCP and that she wants her BP to drop. She hasnt taking her medications in months. Her PE found that she is a poor historian, Cachectic, mildly aggitated, and mildly distressed. Per EMS pt was seen surrounded by bugs and is being treated as a contaminated pt. She has abnormalities in her following laboratory results: WBC, RBC, Hgb, Hct, MCH, MCHC, RDW, Absolute Neuts, Carbon Dioxide at 12 L, Anion Gap, BUN, Creatinine, Glucose at 219. ABG labs had abnormalities in the following: pCO2 at 29, HCO3 at 18.5, and Base Excess -8.2. Her CXR shows possible PNA in the R lower lobe. Pt was admitted with a Dx of PNA at [address] Haque, Hospitalist. - Diagnoses Provider Diagnoses: PNA (pneumonia) - Physician Notifications Discussed Care Of Patient With: Magdiel Haque Time Discussed With Above Provider: 03:40 Instructed by Provider To: Admit As Inpatient Admit/Transition Orders Completed By ED Provider: Yes Discharge ED - Sign-Out/Discharge Documenting (check all that apply): Patient Departure - admitted Patient Received Moderate/Deep Sedation with Procedure: No - Discharge Plan Condition: Stable Disposition: ADMITTED TO [facility] Referrals: No Primary Care Phys,NOPCP [Primary Care Provider] - - Attestation Statements Document Initiated by Scribe: Yes Documenting Scribe: Soto Liriano Provider For Whom Scribe is Documenting (Include Credential): Bethanie Lindsay MD Scribe Attestation: Soto Hernandez, scribed for Bethanie Lindsay MD on 03/27/19 at 0340. Status of Scribe Document: Ready
[2019-03-27 01:45] LABS: TSH (Thyroid Stimulating Horm) 4.67 mcIU/mL (0.34-5.60)
[2019-03-27] MEDS ORDERED: Lorazepam PYXIS KEY ONE (01:54)
[2019-03-27] MEDS ORDERED: Labetalol IV* 5 MG/ML 20 ML VIAL IV PUSH ONE (02:49)
[2019-03-27] MEDS ORDERED: NS 0.9% 1000 ML** 1,000 ML IV ONE (02:51)
[2019-03-27] MEDS ORDERED: cefTRIAXone(*) 2 GM in NS 0.9% 100 ML* 100 ML IVPB ONE (02:52)
[2019-03-27 04:19] LABS: % Iron Saturation 10 % (15-55); Iron 35 ug/dL (50-212); Total Iron Binding Capacity 351 mcg/dL (250-450); Transferrin 251 mg/dL (203-362)
[2019-03-27] MEDS ORDERED: hydrALAZINE IV* 20 MG/ML VIAL IV SLOW PU PRN ×2 (04:35→17:29)
[2019-03-27 04:40] LABS: Ferritin 35.3 ng/mL (11-307)
[2019-03-27] MEDS ORDERED: Dextrose 50% VIAL 50 ml IV PUSH PRN (04:41)
[2019-03-27] MEDS ORDERED: LISINOPRIL PO SCH (04:45)
[2019-03-27 04:52] LABS: LDH 364 U/L (140-271)
[2019-03-27 04:53] LABS: Corrected Retic Count 1.6 % (0.5-1.5); Hematocrit for Retic CNT 28 % (35-47); Immature Retic Fraction 0.44; RBC Retic Count 3.38 10^6/uL (3.70-4.87)
[2019-03-27 05:15] LABS: Troponin I 0.17 ng/mL (<0.04)
[2019-03-27] MEDS ORDERED: Atorvastatin* 80 MG TAB PO ONE (05:19)
[2019-03-27] MEDS: Metoprolol Tartrate TAB* 25 MG PO SCH ×3 (07:18→17:33)
[2019-03-27] MEDS: Pantoprazole IV* 40 MG IV SCH ×3 (07:18→12:25)
[2019-03-27] MEDS: Lisinopril TAB* 5 MG PO SCH (07:18)
[2019-03-27 08:13] LABS: Troponin I 0.69 ng/mL (<0.04)
[2019-03-27] MEDS: Insulin LISPRO* 1 UNITS UNIT SUBCUT SCH ×4 (08:14→20:08)
[2019-03-27] MEDS ORDERED: LORazepam INJ* 2 MG/ML 1 ML VIAL IV PUSH ONE (08:25)
[2019-03-27] MEDS ORDERED: Morphine INJ* 2 MG/ML 1 ML SYRINGE (TWO MG - NEW SYRINGE VERSION) IV PRN ×2 (08:26→17:26)
[2019-03-27] MEDS ORDERED: Nitroglycerin TAB 0.4 MG* 0.4 MG TAB SL PRN (08:28)
[2019-03-27] MEDS ORDERED: Aspirin TAB* 325 MG PO ONE (08:31)
[2019-03-27] MEDS: Sodium Bicarbonate (ANTACID)* 650 MG TAB PO SCH ×3 (08:53→17:33)
[2019-03-27] MEDS: Nitro 2% OINT* (Nitroglycerin) 1 INCH/PAK PAK TOPICAL SCH ×3 (08:53→15:35)
[2019-03-27 08:56] LABS: Urine Benzodiazepine Screen None Detected (None Detect); Urine Opiates Screen None Detected (None Detect)
[2019-03-27] MEDS ORDERED: LORazepam TAB(*) 1 MG PO ONE (09:00)
[2019-03-27] MEDS ORDERED: Metoprolol Succinate XL TAB* 25 MG PO SCH (09:00)
[2019-03-27] MEDS ORDERED: Morphine ORAL CONCENTRATE* 5 MG/0.25 ML ORAL.SYRIN PO PRN (09:07)
--- NOTE | 2019-03-27 09:43 | PN ---
Subjective Date of Service: 03/27/19 Interval History: 48 y/o F with h/o scleroderma, Nonischemic cardiomyopathy, HFrEF(35-40%), pulmonary hypertension presented with chest tightness and SOB that lasted about 5-10 minute. Found to have Hypertensive emergency with elevated troponin with ST depression and T inversion on lateral leads. Also has sepsis with AGMA 2/2 lactic acidosis(resolving). Jose Luis doesnot have complain at present. She thinks symptoms are resolved. has fever Objective Active Medications: Atorvastatin Calcium (Lipitor*) 80 mg PO 1700 [facility] Dextrose (Dextrose 50% Vial 50 Ml*) 25 ml IV PUSH .FOR FS < 60 - SS PRN PRN Reason: FS < 60 Hydralazine HCl (Apresoline Iv*) 20 mg IV SLOW PU Q2H PRN PRN Reason: Systolic Bp Greater Than:180 Ceftriaxone Sodium 1 gm/ (Sodium Chloride) 50 mls @ 100 mls/hr IVPB Q24H [facility] Insulin Human Lispro (Humalog*) 0 units SUBCUT ACHS [facility]; Protocol Last Admin: 03/27/19 08:14 Dose: Not Given Lisinopril (Prinivil Tab*) 5 mg PO DAILY [facility] Last Admin: 03/27/19 07:18 Dose: 5 mg Metoprolol Tartrate (Lopressor Tab*) 25 mg PO Q6H [facility] Last Admin: 03/27/19 07:18 Dose: 25 mg Miscellaneous (Ativan Pyxis Hughes) 1 ea N/A .ATIVAN IV HUGHES PRN PRN Reason: PYXIS HUGHES Morphine Sulfate (Morphine Oral Concentrate*) 5 mg PO Q2H PRN PRN Reason: PAIN - SEVERE Nitroglycerin (Nitroglycerin 2% Oint*) 1 inch TOPICAL 0800,1400 [facility]; Protocol Last Admin: 03/27/19 08:53 Dose: 1 inch Nitroglycerin (Nitroglycerin Tab 0.4 Mg*) 0.4 mg SL Q5M PRN PRN Reason: ANGINA Pantoprazole Sodium (Protonix Iv*) 40 mg IV DAILY [facility] Last Admin: 03/27/19 08:48 Dose: Not Given Pharmacy Profile Note (Nitro Patch/Oint Remove*) 1 note PATCH OFF 1999 [facility] Sodium Bicarbonate (Sodium Bicarbonate (Antacid)*) 650 mg PO AC [facility] Last Admin: 03/27/19 08:53 Dose: 650 mg Vital Signs - 8 hr 03/27/19 03/27/19 03/27/19 01:50 02:00 02:02 Temperature Pulse Rate 119 119 Respiratory 20 Rate Blood Pressure 195/130 (mmHg) O2 Sat by Pulse 93 98 Oximetry 03/27/19 03/27/19 03/27/19 02:18 02:20 02:50 Temperature Pulse Rate 108 112 113 Respiratory 16 Rate Blood Pressure 180/114 162/107 (mmHg) O2 Sat by Pulse 96 93 96 Oximetry 03/27/19 03/27/19 03/27/19 03:00 03:20 03:41 Temperature Pulse Rate 112 112 91 Respiratory Rate Blood Pressure 168/109 152/124 (mmHg) O2 Sat by Pulse 96 95 94 Oximetry 03/27/19 03/27/19 03/27/19 03:52 04:00 04:07 Temperature Pulse Rate 91 91 93 Respiratory Rate Blood Pressure 174/117 170/119 (mmHg) O2 Sat by Pulse 100 97 100 Oximetry 03/27/19 03/27/19 03/27/19 04:22 04:37 04:52 Temperature Pulse Rate 93 93 97 Respiratory Rate Blood Pressure 181/121 170/112 165/106 (mmHg) O2 Sat by Pulse 97 100 98 Oximetry 03/27/19 03/27/19 03/27/19 05:00 05:07 05:22 Temperature Pulse Rate 97 103 99 Respiratory Rate Blood Pressure 157/120 148/99 (mmHg) O2 Sat by Pulse 97 89 90 Oximetry 03/27/19 03/27/19 03/27/19 05:37 05:52 06:00 Temperature Pulse Rate 100 102 102 Respiratory Rate Blood Pressure 147/92 146/94 (mmHg) O2 Sat by Pulse 95 96 96 Oximetry 03/27/19 03/27/19 03/27/19 06:06 06:07 06:22 Temperature 96.4 F Pulse Rate 102 102 103 Respiratory 18 Rate Blood Pressure 146/94 146/99 150/92 (mmHg) O2 Sat by Pulse 96 96 89 Oximetry 03/27/19 03/27/19 06:37 06:45 Temperature 100.1 F Pulse Rate 103 106 Respiratory 22 Rate Blood Pressure 148/94 146/89 (mmHg) O2 Sat by Pulse 92 95 Oximetry Oxygen Devices in Use Now: Nasal Cannula Exam: Patient is thin built; is lying on a bed with nasal cannula. HEENT: Normocephalic and atraumatic Lungs: Crackles heard on lower lung base. Heart: S1/S2 heard with no murmur. Abdomen: Soft, nondistended and nontender. Extremity: Bony deformity and contractures seen on fingers. NO any swelling Neuro: Alert, conscious and oriented Result Diagrams: 03/27/19 13:34 03/27/19 12:38 Additional Lab and Data: Lab Results 03/27/19 03/27/19 Range/Units 00:46 00:46 WBC 21.0 H (3.5-10.8) 10^3/uL RBC 3.52 L (3.70-4.87) 10^6 /uL Hgb 8.5 L (12.0-16.0) g/dL Hct 29 L (35-47) % MCV 83 (80-97) fL MCH 24 L (27-31) pg MCHC 29 L (31-36) g/dL RDW 20 H (10-15) % Plt Count 433 (150-450) 10^3/uL MPV 9.3 (7.4-10.4) fL Neut % (Auto) 88.5 % Lymph % (Auto) 7.7 % [place] % (Auto) 1.6 % Eos % (Auto) 1.7 % Baso % (Auto) 0.5 % Absolute Neuts (auto) 18.6 H (1.5-7.7) 10^3/ul Absolute Lymphs (auto) 1.6 (1.0-4.8) 10^3/ul Absolute Monos (auto) 0.3 (0-0.8) 10^3/ul Absolute Eos (auto) 0.4 (0-0.6) 10^3/ul Absolute Basos (auto) 0.1 (0-0.2) 10^3/ul Absolute Nucleated RBC 0.0 10^3/ul Nucleated RBC % 0.0 Sodium 138 (135-145) mmol/L Potassium 3.9 (3.5-5.0) mmol/L Chloride 106 (101-111) mmol/L Carbon Dioxide 12 L* (22-32) mmol/L Anion Gap 20 H (2-11) mmol/L BUN 32 H (6-24) mg/dL Creatinine 1.66 H (0.51-0.95) mg/dL Est GFR ( Amer) 40.2 (>60) Est GFR (Non-Af Amer) 33.3 (>60) BUN/Creatinine Ratio 19.3 (8-20) Glucose 219 H (70-100) mg/dL Calcium 8.6 (8.6-10.3) mg/dL Total Bilirubin 0.50 (0.2-1.0) mg/dL AST 24 (13-39) U/L ALT 10 (7-52) U/L Alkaline Phosphatase 89 (34-104) U/L Total Protein 6.9 (6.4-8.9) g/dL Albumin 3.8 (3.2-5.2) g/dL Globulin 3.1 (2-4) g/dL Albumin/Globulin Ratio 1.2 (1-3) TSH Pending Salicylates Pending Acetaminophen Pending Serum Alcohol Pending Assess/Plan/Problems-Billing Assessment: 48 y/o F with h/o scleroderma, Nonischemic cardiomyopathy, HFrEF(35-40%), pulmonary hypertension presented with chest tightness and SOB that lasted about 5-10 minute. Found to have Hypertensive emergency with elevated troponin with ST depression and T inversion on lateral leads. Also has sepsis with AGMA 2/2 lactic acidosis(resolving) - Patient Problems (1) Non-ST elevation ME (NSTEMI) Current Visit: Yes Status: Acute Code(s): I21.4 - NON-ST ELEVATION (NSTEMI) MYOCARDIAL INFARCTION SNOMED Code(s): 85310074 Comment: presented with chest tightness and sob that lasted around 10 minutes. elevated trop with lateral st depression and T inversion. aspirin, nitroglyerin, morphine, lovenox given. Dr. Treadwell contacted; stress test on friday unless decompensates. plan is to do echo tomorrow. Difficult to access IV given her scleroderma trend troponin watch for any chest pain and decompensation. may be because of fibrosis of cardiac tissue 2/2 to SS or due to hypertensive emergency. myocardial ischemia is common in SS so may be this causing her ischemic changes. we will do TTE tomorrow then decide if she needs stress test or not. Patient wanted to leave AMA. Psych consulted and said that she doesnot have capacity at present to leave AMA. HCP is her significant partner- John Paul Doyle([phone]) (2) Hypertensive emergency Current Visit: Yes Status: Acute Code(s): I16.1 - HYPERTENSIVE EMERGENCY SNOMED Code(s): 655025555656443 Comment: BP at ED was 217/143 mm Hg. presented with chest tightness and sob IV labetalol given. Now BP is controlled with prn order of hydralazine. could be due to SS. (3) Sepsis Current Visit: No Status: Acute Comment: Source unknown- could be due to pneumonia There is some haziness on right lower lung on xray. developed fever after hopsital admission within 12 hrs. HR normal No any prior sx of fever, cough. treates with ceftriaxone initially but fevr still present. switched to cefepime and metron to cover broadly.(day 1) (4) Heart failure with reduced ejection fraction Current Visit: Yes Status: Acute Code(s): I50.20 - UNSPECIFIED SYSTOLIC ( CONGESTIVE) HEART FAILURE SNOMED Code(s): 653965673 Comment: Echo on 2015 showed EF of 35-40%. Now she has signs of volume overload with crackles. Xray shows some haziness on right lower lung-?CHF or PNA We will give 1 dose of IV lasix and see how she improves. may need require iv lasix tomorrow. (5) Anemia Current Visit: No Status: Acute Code(s): D64.9 - ANEMIA, UNSPECIFIED SNOMED Code(s): 897135203 Comment: Likely secondary to chronic illness with component of iron deficiency. Her HB is 8.5. after she stabilizes plan is to give iv ferrous gluconate. (6) Scleroderma Current Visit: No Status: Acute Code(s): M34.9 - SYSTEMIC SCLEROSIS, UNSPECIFIED SNOMED Code(s): 70416512 Comment: Patient was diagnosed with scleroderma 5 years ago. was seen by dr. welsh; was started on a retrial of cellcept, as she had allergy earlier. She is not taking her medication at present. her last visit with dr. welsh was 1 year ago. Jose Luis is not taking any of her medication for last few weeks as she had no PCP to refill the meds. She was following with PCP previously; then after his she doesnt have PCP. we will consult Dr. Welsh for his input (7) DVT prophylaxis Current Visit: No Status: Acute Code(s): LBG3160 - SNOMED Code(s): 012769787 Comment: On lovenox; renally dosed (8) Full code status Current Visit: No Status: Acute Code(s): Z78.9 - OTHER SPECIFIED HEALTH STATUS SNOMED Code(s): 002953477 Status and Disposition: Inpatient; Cardio following Attending: Shari Rowland Attestation Documenting Resident: Levon Bird Supervising Physician: Shari Rowland Attestation: This service has been performed in part by a resident under the direction of a teaching physician.I, Shari Rowland, performed the service, or was physically present during the critical, or hughes portions of the service, furnished by the resident. I participated in the management of the patient.
[2019-03-27] MEDS ORDERED: Furosemide IV* 10 MG/ML VIAL (40 MG) IV ONE (09:55)
[2019-03-27] MEDS ORDERED: Enoxaparin(*) 40 MG/0.4 ML SYR SUBCUT SCH ×2 (10:00→11:00)
--- NOTE | 2019-03-27 12:36 | HP ---
HISTORY AND PHYSICAL: DATE OF ADMISSION: 03/27/19 ADMITTING PROVIDER: Magdiel Haque MD. PRIMARY CARE PROVIDER: Formerly Dr. Sewell(). Has not reestablished with anyone new. CHIEF COMPLAINT: Feels sick, chills, stomach pain, chest squeezing, and anxiety attack. HISTORY OF PRESENT ILLNESS: Danielle Amador is a 48-year-old female with past medical history of severe scleroderma, nonischemic cardiomyopathy, moderate pulmonary hypertension, heart failure with reduced ejection fraction (35% to 40 % in June 2016), hypertension(frequently uncontrolled), and rheumatoid arthritis. She was in her usual state of health until the day before admission when she felt chills and generally sick. She is a poor historian, frequently falling asleep during interview. She currently denies any fevers or shortness of breath, though reportedly shortness of breath and coughing were two of her presenting symptoms. She does have a squeezing chest pain and some stomach pain that she says "came after the gas pain." On initial evaluation in the [facility], she was found to have leukocytosis of 21, anemia with a hemoglobin of 8.5 and hematocrit 29, carbon dioxide 12, lactic acid elevated at 2.2, and glucose elevated at 219. She was tachycardic to 110, afebrile, and hypertensive; initially 190/129 then up to 217/143. She was referred to the hospitalist service for admission for a potential pneumonia that was seen on her chest x-ray and she did meet sepsis criteria. She was started on 1 L normal saline bolus, ceftriaxone, and given labetalol 20 mg IV. She denies any nausea or vomiting. It was reported that her apartment is covered in bedbugs and cockroaches. She has been out of her lisinopril for likely at least 2 months. Of note, she presented to [facility] on 02/18/19 with a variety of complaints including chest pain, bilateral knee pain, dizziness, diaphoresis, diarrhea and she refused admission at that time. Additional labs at this admission included a BNP greater than 1300, a CRP negative at 1.0. ABG was obtained and showed metabolic acidosis. Anion gap was 20. PAST MEDICAL HISTORY: Severe scleroderma, chronic smoker, nonischemic cardiomyopathy with heart failure with reduced ejection fraction of 35% to 40% in June 2016, hypertension with frequent hypertensive emergencies, history of cocaine abuse, rheumatoid arthritis. MEDICATIONS: Include (she has run out of everything), but formerly had been on: 1. Lisinopril 20 mg daily. 2. Metoprolol succinate 25 mg daily. 3. Ibuprofen 200 to 400 mg p.o. daily p.r.n. She should have had refills through 01/26/19 per EMR records of pharmacy distributions. ALLERGIES: Include CODEINE, severe rash; LACTOSE, GI upset; PENICILLIN, severe hives and difficulty breathing; FLAGYL, nausea and vomiting; AMPICILLIN, difficulty breathing; TRAMADOL, rash; ASPIRIN, heartburn; ACETAMINOPHEN, GI upset; PEANUTS, rash and difficulty breathing; BROWN, hives; berries, rash. FAMILY HISTORY: Father was unknown. Mother was alive with blindness in 1 eye. Brother with heart disease. SOCIAL HISTORY: The patient smokes 1 to 2 cigarettes a day. Former drug addiction with cocaine use, reportedly quit at age 32 per prior H and P. Not employed, has a boyfriend. REVIEW OF SYSTEMS: A complete 14-point review of systems is negative, except as per HPI and limited as the patient is falling asleep and a poor historian. PHYSICAL EXAMINATION GENERAL APPEARANCE: The patient in left lateral decubitus position/ position, covered in blankets, frequently falling asleep. VITAL SIGNS: Temperature 96.2; heart rate 110, improved to 91; blood pressure 190/129, max of 217/143, currently 174/117; oxygen saturation between 87% and 100%. HEENT: Normocephalic, atraumatic. NECK: Supple. LUNGS: With rhonchi at bilateral bases. CARDIOVASCULAR: Regular rate and rhythm. No murmurs, rubs, or gallops. ABDOMEN: Soft. Some epigastric tenderness. No rebound. No guarding. EXTREMITIES: Warm, well perfused. Trace pitting edema. Contracted upper and lower extremities NEUROLOGIC: She is moving all extremities. Alert and oriented x4. Cranial nerves deferred. SKIN: Taut, tanned. DIAGNOSTIC STUDIES/LAB DATA: Labs: White count 21.0, hemoglobin 8.5, hematocrit 29, platelets 433. ABG, pH 7.35, pCO2 of 29, pO2 of 85, bicarb 18.5. Sodium 138, potassium 3.9, chloride 106, carbon dioxide 12, anion gap 20 , BUN 32, creatinine 1.66, glucose 219, lactic acid 2.2, calcium 8.6. Iron 35, iron sat 10, ferritin 35. Fibrinogen 0.5. AST 24, ALT 10, alk phos 89. LDL is pending. BNP greater than 1300. TSH 4.67. Lipase added and pending. Toxicology: Salicylates negative, acetaminophen negative, serum alcohol negative. Imaging: Chest x-ray, official read pending. She is rotated. Hard to exclude either a foreign body obscuring parts of her right lower lung versus an infiltrate and there does seem to be a small effusion in the fissure on the right. Some fine reticular changes bilaterally. EKG: She has T-wave inversions in V3 to V6 and ST depressions in V4 through V6 , Q wave in V1, heart rate is 103. ASSESSMENT AND PLAN: Danielle Amador is a 48-year-old female with severe scleroderma, nonischemic cardiomyopathy, heart failure with reduced ejection fraction and at least moderate pulmonary hypertension, rheumatoid arthritis, and hypertension presenting with complaint of chills, generalized sickness and was found to meet sepsis criteria with leukocytosis, tachycardia, lactic acidosis, and metabolic acidosis. She has been out of her medications ( including ACEI) for what sounds like at least approximately 2 months and blood pressure is poorly controlled here in the setting of her known moderate pulmonary hypertension and risk for pulmonary fibrosis. She is additionally complaining of some squeezing chest pressure, anxiety, and stomach pain. We are submitting a lipase and will get a repeat lactic acid in few hours. She is status post 1 L fluid bolus. Blood cultures were drawn and she was started on ceftriaxone. I am getting a sputum culture. Urinalysis is still pending. Of note her CRP is normal at 1.0. Troponin is being added along with repeat EKG. She did have some chest pain a month ago. Low threshold for repeat echocardiogram; her last was in June 2016, which showed progression in pulmonary hypertension from a mild to moderate severity. She is at risk for pulmonary arterial hypertension given her severe scleroderma. Ultimately, establishing with care providers and re-establishing back with Rheumatology for consideration for possible Plaquenil or other disease modifying agent will be critical. She is reportedly living in squalid deconditions. For her hypertensive urgency, I am restarting her metoprolol and an YONI inhibitor would be useful given her scleroderma. It is frankly not clear what her renal baseline is because only 2 data points over the last 2 years - today and a month ago. Not clear if she is in acute kidney injury, though I would not be surprised. Just now returning is her initial troponin of 0.17. We will make the beta blockers more frequent and add on atorvastatin and trend troponins. Her EKG is showing some ischemic changes, ST depressions in V4 through V6 most notably, and some squeezing chest pressure. We will give her atorvastatin and nitroglycerin. She would not answer my questions about medical surrogate. She has some evidence of iron deficiency with iron sat 10%, iron 35, ferritin 35. LDH is elevated at 364. Haptoglobin is pending, retic count is pending. Stool occult blood is pending. She denied any known bleeding in her bowel movements. She can eat a heart-healthy diet. She is reportedly a full code. [id number]/[facility] #: [id number] MTDD
[2019-03-27 13:09] LABS: BUN/Creatinine Ratio 21.9 (8-20); Calcium 7.8 mg/dL (8.6-10.3); EGFR African American 32.3 (>60); EGFR Non-African American 26.7 (>60); Potassium 4.5 mmol/L (3.5-5.0)
[2019-03-27 13:15] LABS: Troponin I 0.47 ng/mL (<0.04)
[2019-03-27 13:47] LABS: ABS Basophils 0.1 10^3/ul (0-0.2); ABS Eosinophils 0.1 10^3/ul (0-0.6); ABS Lymphocytes 1.7 10^3/ul (1.0-4.8); ABS Monocytes 0.8 10^3/ul (0-0.8); ABS Neutrophils 10.7 10^3/ul (1.5-7.7); Eosinophil % 0.7 %; Hematocrit 21 % (35-47); Hemoglobin 6.5 g/dL (12.0-16.0); Lymphocyte % 12.5 %; Mean Corpuscular HGB Conc 31 g/dL (31-36); Mean Corpuscular Hemoglobin 24 pg (27-31); Mean Corpuscular Volume 78 fL (80-97); Mean Platelet Volume 8.6 fL (7.4-10.4); Platelet Count 224 10^3/uL (150-450); Red Blood Count 2.69 10^6 /uL (3.70-4.87); Red Cell Distribution Width 19 % (10-15); White Blood Count 13.3 10^3/uL (3.5-10.8)
--- NOTE | 2019-03-27 15:21 | CONSULT ---
Identification - Patient Identification Reason for Psychiatric Consultation: Other - Capacity determination to leave AMA -: Patient is a 48 year old, F admitted on 03/27/19. - MHU Identification Employment Status: Disabled Hx Psychiatric Hospitalization: No Arrived to Hospital Via: Ambulatory - EMS History - Objective HPI: 48 y/o physically disabled female with unknown mental health history admitted on due to chest tightness and SOB in the context of Hypertensive Emergency with elevated troponin and ST depression. According her hospitalist, the resident physician and steward/stewardess third she needs treatment for her cardiac conditions but she wants to go home instead. During the capacity determination she appeared to lack capacity to understand the risks involved with her leaving the hospital without competing the proposed treatments. She believes she already received adequate treatments and wants to go home now. Mental status : This is a thin framed, physically distressed female who is alert and oriented to time place and person. Makes intermittent eye contacts. Describes her mood as depressed and he observed affect appears sad and tearful. Thought process is illogical without any evidence of delusions or SI. or hallucinations. Insight and judgment is impaired. Exam Appearance: Thin Framed Hygiene: Mal-odorous Grooming: Disheveled Psychomotor Activities: Normal Exhibits Abnormal Movement: No Attitude and Relatedness: Superficially Cooperative Eye Contact: Fair - Speech Quality: Unpressured Latencies: Normal Patient's Decription of Mood: "Terrible" Observed Affect: Depressed Patient's Thought Process: Coherent, Circumstantial Thought Content: No Passive Wish, No Suicidal Planning, No Homicidal Ideation, No Paranoid Ideation Experiencing Hallucinations: No, Sensorium is Clear Type of Hallucinations: Visual: No, Auditory: No, Command: No Level of Consciousness: Alert Orientation: Yes Intact, Yes Orientated to Time, Yes Orientated to Place, Yes Orientated to Person Impulse Control: Intact Insight and Judgement: Impaired Impression - Impression Clinical Impression: Patient at this time lacks mental capacity to make a rational decision to sign self out AMA. Merits Inpatient Hospitalization: No Plan - Treatment Plan Medications: Current Medications Aspirin (Aspirin 81 Mg Chew Tab*) 81 mg PO DAILY [facility] Atorvastatin Calcium (Lipitor*) 80 mg PO 1700 [facility] Dextrose (Dextrose 50% Vial 50 Ml*) 25 ml IV PUSH .FOR FS < 60 - SS PRN PRN Reason: FS < 60 Enoxaparin Sodium (Lovenox(*)) 40 mg SUBCUT Q24H [facility] Last Admin: 03/27/19 12:27 Dose: 40 mg Hydralazine HCl (Apresoline Iv*) 20 mg IV SLOW PU Q2H PRN PRN Reason: Systolic Bp Greater Than:180 Ceftriaxone Sodium 1 gm/ (Sodium Chloride) 50 mls @ 100 mls/hr IVPB Q24H [facility] Insulin Human Lispro (Humalog*) 0 units SUBCUT ACHS [facility]; Protocol Last Admin: 03/27/19 12:46 Dose: Not Given Lisinopril (Prinivil Tab*) 5 mg PO DAILY [facility] Last Admin: 03/27/19 07:18 Dose: 5 mg Metoprolol Tartrate (Lopressor Tab*) 25 mg PO Q6H [facility] Last Admin: 03/27/19 12:26 Dose: 25 mg Miscellaneous (Ativan Pyxis [place]) 1 ea N/A .ATIVAN IV [place]AS PRN PRN Reason: PYXIS [place] Morphine Sulfate (Morphine Oral Concentrate*) 5 mg PO Q2H PRN PRN Reason: PAIN - SEVERE Nitroglycerin (Nitroglycerin 2% Oint*) 1 inch TOPICAL 0800,1400 [facility]; Protocol Last Admin: 03/27/19 08:53 Dose: 1 inch Nitroglycerin (Nitroglycerin Tab 0.4 Mg*) 0.4 mg SL Q5M PRN PRN Reason: ANGINA Pantoprazole Sodium (Protonix Iv*) 40 mg IV DAILY [facility] Last Admin: 03/27/19 12:25 Dose: 40 mg Pharmacy Profile Note (Nitro Patch/Oint Remove*) 1 note PATCH OFF 1999 [facility] Sodium Bicarbonate (Sodium Bicarbonate (Antacid)*) 650 mg PO AC [facility] Last Admin: 03/27/19 12:25 Dose: 650 mg - Discharge Plan Discharge Plan: Inpatient Hospitalization - Continue inpatient care until her cadiac conditions resolve.
[2019-03-27] MEDS ORDERED: LORazepam INJ* 2 MG/ML 1 ML VIAL IV PUSH PRN (17:26)
[2019-03-27 18:06] LABS: Hematocrit 19 % (35-47); Hemoglobin 6.1 g/dL (12.0-16.0)
[2019-03-27] MEDS: Cefepime 1 GM in Dextrose(*) 1 GM/50 ML BAG IV SCH (19:57)
[2019-03-27] MEDS ORDERED: Nitro Patch/OINT Remove PATCH OFF SCH (20:00)
[2019-03-27] MEDS: metroNIDAZOLE IV 500 MG/100ML* 500 MG/100 ML BAG IVPB SCH (20:41)
[2019-03-28 00:24] LABS: Urine Appearance Cloudy; Urine Bacteria Absent (Absent); Urine Bilirubin Negative (Negative); Urine Blood 1+ (Negative); Urine Color Straw; Urine Glucose Negative (Negative); Urine Ketones Negative (Negative); Urine Nitrite Negative (Negative); Urine Protein 2+(100 mg/dL) (Negative); Urine Red Blood Cell 1+(3-5/hpf) (Absent); Urine Specific Gravity 1.006 (1.010-1.030); Urine Squamous Epithelial Cell Present (Absent); Urine Urobilinogen Negative (Negative); Urine White Blood Cell 2+(11-20/hpf) (Absent)
[2019-03-28] MEDS: Metoprolol Tartrate TAB* 25 MG PO SCH ×4 (01:30→22:00)
[2019-03-28] MEDS ORDERED: cefTRIAXone(*) 1 GM in NS 0.9% 50 ML* 50 ML IVPB SCH (06:00)
[2019-03-28] MEDS: metroNIDAZOLE IV 500 MG/100ML* 500 MG/100 ML BAG IVPB SCH ×2 (06:42→17:46)
[2019-03-28] MEDS: Nicotine Patch Removal NOTE FOLLOW UP SCH (06:52)
[2019-03-28 07:04] LABS: ABS Basophils 0.1 10^3/ul (0-0.2); ABS Eosinophils 0.5 10^3/ul (0-0.6); ABS Lymphocytes 1.6 10^3/ul (1.0-4.8); ABS Monocytes 0.7 10^3/ul (0-0.8); ABS Neutrophils 5.5 10^3/ul (1.5-7.7); Eosinophil % 5.6 %; Hematocrit 23 % (35-47); Hemoglobin 7.7 g/dL (12.0-16.0); Lymphocyte % 19.2 %; Mean Corpuscular HGB Conc 34 g/dL (31-36); Mean Corpuscular Hemoglobin 26 pg (27-31); Mean Corpuscular Volume 78 fL (80-97); Platelet Count 183 10^3/uL (150-450); Red Blood Count 2.96 10^6 /uL (3.70-4.87); Red Cell Distribution Width 17 % (10-15); White Blood Count 8.4 10^3/uL (3.5-10.8)
[2019-03-28 07:12] LABS: Anion Gap 9 mmol/L (2-11); Blood Urea Nitrogen 57 mg/dL (6-24); CO2 Carbon Dioxide 19 mmol/L (22-32); Calcium 8.1 mg/dL (8.6-10.3); Chloride 110 mmol/L (101-111); EGFR African American 24.1 (>60); EGFR Non-African American 19.9 (>60); Glucose 89 mg/dL (70-100); Potassium 4.2 mmol/L (3.5-5.0); Sodium 138 mmol/L (135-145)
[2019-03-28] MEDS: Insulin LISPRO* 1 UNITS UNIT SUBCUT SCH ×2 (07:48→11:38)
[2019-03-28] MEDS ORDERED: Furosemide IV* 10 MG/ML VIAL (40 MG) IV ONE (09:00)
--- NOTE | 2019-03-28 09:00 | PN ---
Subjective Date of Service: 03/28/19 Interval History: HD 2 on 03/28 48 F PMH scleroderma with sclerodactly and joint restriction, non ambulatory at baseline, anxiety/depression, tob use, NICM with HFrEF (last EF in 2017 35%) , HTN, remote hx of PSA (cocaine, never IVDU), cachexia (last weight in 2017 also 87 lbs) who presented with SOB HTN emergency with elevated troponin, CHF exacerbation and hypoxia, sepsis with possible early PNA, and severe AGMA. She has requested to leave AMA several times on 03/27 Interim: Overnight, got 1 PRBC, appropriate response, VSS Labs Cr Bump to 2.5, discussed with renal and cardiology Imaging: Echo Improved EF, but e/o RWMA Making urine, -2.3L for hospital This morning, seen in bed, sleeping but cooperative, pleasant, gets bouts of anxiety, responsive to ativan. Weepy at times but denies chest pain, denies shortness of breath, no other complaints other than would like to go home, we will await psychiatry input Objective Active Medications: Aspirin (Aspirin 81 Mg Chew Tab*) 81 mg PO DAILY [facility] Atorvastatin Calcium (Lipitor*) 80 mg PO 1700 [facility] Dextrose (Dextrose 50% Vial 50 Ml*) 25 ml IV PUSH .FOR FS < 60 - SS PRN PRN Reason: FS < 60 Furosemide (Lasix Iv*) 40 mg IV ONCE ONE Stop: 03/28/19 09:01 Hydralazine HCl (Apresoline Iv*) 10 mg IV SLOW PU Q2H PRN PRN Reason: Systolic Bp Greater Than:180 Cefepime HCl (Maxipime 1 Gm In Dextrose Duplex (*)) 1 gm in 50 mls @ 100 mls/ hr IV Q24H [facility] Last Admin: 03/27/19 19:57 Dose: 100 mls/hr Metronidazole/Sodium Chloride (Flagyl 500 Mg Ivpb*) 500 mg in 100 mls @ 100 mls /hr IVPB Q12H [facility] Last Admin: 03/28/19 06:42 Dose: 100 mls/hr Insulin Human Lispro (Humalog*) 0 units SUBCUT ACHS [facility]; Protocol Last Admin: 03/28/19 07:48 Dose: Not Given Lisinopril (Prinivil Tab*) 5 mg PO DAILY [facility] Last Admin: 03/27/19 07:18 Dose: 5 mg Lorazepam (Ativan Inj*) 1 mg IV PUSH Q6H PRN PRN Reason: ANXIETY Last Admin: 03/27/19 23:19 Dose: 1 mg Metoprolol Tartrate (Lopressor Tab*) 25 mg PO Q6H [facility] Last Admin: 03/28/19 06:48 Dose: 25 mg Miscellaneous (Ativan Pyxis [place]) 1 ea N/A .ATIVAN IV [place] PRN PRN Reason: PYXIS [place] Morphine Sulfate (Morphine Inj (Syringe))*) 2 mg IV Q6H PRN PRN Reason: PAIN - SEVERE Nicotine (Nicotine Patch 14 Mg/24 Hr*) 1 patch TRANSDERM DAILY [facility] Nitroglycerin (Nitroglycerin Tab 0.4 Mg*) 0.4 mg SL Q5M PRN PRN Reason: ANGINA Pantoprazole Sodium (Protonix Iv*) 40 mg IV DAILY [facility] Last Admin: 03/27/19 12:25 Dose: 40 mg Pharmacy Profile Note (Nicotine Patch Removal Note*) 1 note FOLLOW UP 0600 [facility] Last Admin: 03/28/19 06:52 Dose: Not Given Vital Signs - 8 hr 03/28/19 03/28/19 03/28/19 04:23 06:49 07:15 Temperature 98.9 F 99 F Pulse Rate 88 84 78 Respiratory 24 16 Rate Blood Pressure 139/82 149/86 136/81 (mmHg) O2 Sat by Pulse 99 100 Oximetry Oxygen Devices in Use Now: Nasal Cannula Appearance: Cachetic woman in bed no distress Eyes: No Scleral Icterus Ears/Nose/Mouth/Throat: Clear Oropharnyx, - - Dry MM, scelrodermic skin changes , poor dentition Neck: NL Appearance and Movements; NL JVP Respiratory: - - Crackles in R lung Cardiovascular: NL Sounds; No Murmurs; No JVD, RRR, - - No rub Abdominal: - - Scapphoid soft NT ND Lymphatic: No Cervical Adenopathy Extremities: No Edema Skin: - - Scleroderma changes Neurological: Alert and Oriented x 3, - - Hysterical at times, no focal defecit Lines/Tubes/Other Access: Clean, Dry and Intact Olivas - 03/27 Result Diagrams: 03/28/19 06:30 03/28/19 06:30 Additional Lab and Data: Microbiology and Other Data: Microbiology 03/27/19 22:41 Transfusion Reaction Gram Stain - Final Blood Bag 03/27/19 03:35 Aerobic Blood Culture - Final Blood Venous Not Reportable Anaerobic Blood Culture - Final Not Reportable Blood Culture - Preliminary No Growth Day 1 03/27/19 03:35 Aerobic Blood Culture - Final Blood Venous Not Reportable Anaerobic Blood Culture - Final Not Reportable Blood Culture - Preliminary No Growth Day 1 03/27/19 22:32 Streptococcus pneumoniae Ag Screen - Final Urine Negative S. pneumo Antigen Diagnostic Imaging: Echo: EF 45-50%, apical hypokinesis Assess/Plan/Problems-Billing Assessment: 48 F PMH scleroderma with sclerodactly and joint restriction, non ambulatory at baseline, anxiety/depression, tob use, NICM with HFrEF (last EF in 2016 35%) , HTN, remote hx of PSA (cocaine, never IVDU), cachexia (last weight in 2017 also 87 lbs) who presented with SOB HTN emergency with elevated troponin, CHF exacerbation and hypoxia, r/o ACS, sepsis with PNA, and severe AGMA. Hospital course c/b severe anxiety and now SENG concerning for renal crisis. Her collection of sx is concerning for cardiac involvement of scleroderma and myocardial fibrosis which can lead to ACS and myocarditis. Furthermore she has FTT with cachexia, pneumonia in RLL, and worsening renal function on 03/28 concerning for scleroderma renal crisis vs SENG from other offending agents ( such as intravascular depletion). - Patient Problems (1) Hypertensive emergency Current Visit: Yes Status: Acute Code(s): I16.1 - HYPERTENSIVE EMERGENCY SNOMED Code(s): 735205234219788 Comment: - Systolic BP in the 200s on admissoin - s/p labetolol 20mg IV, PRN Hydral - Decent control, on home lisinopril and Metoprolol, discuss with Nephrology who recommend to keep YONI I on in sceleroderma, will add Amldopine low dose today (2) Elevated troponin I level Current Visit: No Status: Acute Code(s): R79.89 - OTHER SPECIFIED ABNORMAL FINDINGS OF BLOOD CHEMISTRY SNOMED Code(s): 224563122 Comment: - High risk for acute OK given fibrosis, last cath 2014 no coronary dz, though OK in this case if from external fibrosis not intravascular, ideally would need cardiac MRI - Echo with RWMA, concerning for ACS, pt is currently CP free, tx CP with nitro/ morphine - She did get treatemnt dose Lovenox x1 03/[address] changes and TWI new compared to prior, discussion with cardiology is to hold AC in setting of SENG. - Continue asa, statin (3) Acute hypoxemic respiratory failure Current Visit: No Status: Acute Code(s): J96.01 - ACUTE RESPIRATORY FAILURE WITH HYPOXIA SNOMED Code(s): 334866492 Comment: - Secondary to acute pulmonary edema/hypertensive emergency/PNA. Lasix 40mg IV x 2 03/27, , may be over diuresed can give back gentle IVF - Getting tx for PNA broadly (4) Sepsis Current Visit: No Status: Acute Comment: - Source unknown-appears PNA - There is some haziness on right lower lung on xray. - Cefipime and Flagyl Day 2 on 03/28, this was broadened from CTX on 03/27 after persistent fever - Culture data NGTD thus far (5) Heart failure with reduced ejection fraction Current Visit: Yes Status: Acute Code(s): I50.20 - UNSPECIFIED SYSTOLIC ( CONGESTIVE) HEART FAILURE SNOMED Code(s): 015954379 Comment: - Echo in 2016 showed EF of 35-40%., improved to 45% 2019 with apical hypokinesis - IV Lasix 40mg daily x 2 days, hold / to SENG moving forward, will give back very gentle IVF 75cc x 500cc. (6) SENG (acute kidney injury) Current Visit: No Status: Acute Code(s): N17.9 - ACUTE KIDNEY FAILURE, UNSPECIFIED SNOMED Code(s): 95817485 Comment: - Underlying CHF, however also associated with elevated blood pressure which increases concern for scleroderma renal crisis, associated NAGMA - Consult renal, who recommends to continue ACEI, meeting criteria for scleroderma renal crisi, and try gentle IVF bolus - Continue with olivas (7) Anemia Current Visit: No Status: Acute Code(s): D64.9 - ANEMIA, UNSPECIFIED SNOMED Code(s): 242540952 Comment: - Likely secondary to chronic illness with component of iron deficiency. - sp 1UPRBC apprproate response, would benefit from IV iron if she stabilized (8) Anxiety Current Visit: Yes Status: Acute Code(s): F41.9 - ANXIETY DISORDER, UNSPECIFIED SNOMED Code(s): 51255770 Comment: - Severe, PRN Lorazepam, psych to follow and determine capacity daily - If she is deemed to have capacity may leave AMA, she has been more aggreeable to stay as of 03/28, continue gentle patient centered approach (9) Scleroderma Current Visit: No Status: Acute Code(s): M34.9 - SYSTEMIC SCLEROSIS, UNSPECIFIED SNOMED Code(s): 53047501 Comment: - Severe, likely with multi organ involvement - Reports allergy to cellcept, LTFU for years, avoid steroids in current renal crisis - Request rheum to consult 03/29, anti-RNA Ploymerase 3 ordered (10) DVT prophylaxis Current Visit: No Status: Acute Code(s): UTC4711 - SNOMED Code(s): 798425983 Comment: - On lovenox treatment x1 03/27, can continue PPX with heparin unless otherwise advised to therapeutically anticoagulate (11) Full code status Current Visit: No Status: Acute Code(s): Z78.9 - OTHER SPECIFIED HEALTH STATUS SNOMED Code(s): 389571188 Status and Disposition: Inpatient Consultants: cardio, renal, psych and rheum to consult Social work to consult Ultimately this pt is quite sick but if deemed to have capacity may leave AMA though we will NOT arrange transport for her to go, her fiance, Toy would have to pick her up and take her out. Furthermore she is non ambulatory and would need to be wheeled out by her partner, not by hospital staff making the reality of a AMA d/c more complicated. Attempt to re direct and encourage pt to stay for completion of treatment, engagement in primary care and realistic conversations about severity of her illness. She responds well to ativan and gentle encouragement
[2019-03-28] MEDS: Aspirin 81 mg CHEW TAB* 81 MG TAB.CHEW PO SCH (09:02)
[2019-03-28] MEDS: Pantoprazole IV* 40 MG IV SCH (09:02)
[2019-03-28] MEDS: Nicotine PATCH 14 MG/24 HR* PATCH TRANSDERM SCH (09:02)
[2019-03-28] MEDS: Lisinopril TAB* 5 MG PO SCH (09:02)
[2019-03-28 10:14] LABS: Troponin I 0.12 ng/mL (<0.04)
--- NOTE | 2019-03-28 10:45 | ECHO ---
*[facility]* [place] [address] Fax #: [phone] Transthoracic Echocardiogram Patient: Danielle Amador : 1970 Study Date: 03/28/2019 Age: 48 Gender: F HR: 71 bpm Height: 62 in /157.5 cm BSA: 1.29 m^2 Weight: 79.8 lb /36.3 kg BMI: 14.6 kg/m^2 *Senior Director Finance: * Ellie Miranda [facility] *Referring Physician: * Magdiel Haque *Reading Physician: * Bharati Treadwell MD Indications: Abnormal EKG. Cardiomyopathy. Chest Pain, unspecified. History: Congestive heart failure. PMH: Cardiomyopathy. Risk factors: Current tobacco use. Hypertension. Conclusions Summary: - Left ventricle: Wall thickness is mildly increased. Systolic function is reduced. The estimated ejection fraction is 45-50%. Hypokinesis of the apical myocardium. Features are consistent with a pseudonormal left ventricular filling pattern, with concomitant abnormal relaxation and increased filling pressure (grade 2 diastolic dysfunction). - Right ventricle: Systolic function is normal. - Mitral valve: There is mild to moderate regurgitation. - Aortic valve: There is trace to mild regurgitation. - Tricuspid valve: There is trace regurgitation. - Pulmonary arteries: Systolic pressure can not be accurately estimated. - Compared with prior echocardiogram of 06/19/16, left ventricle hypertrophy is stable, apical hypokinesis replaces global hypokinesis, ejection fraction has improved from 35-40%. Prior diasotolic filling was restrictive. Mitral regurgitation is stable, unable to cmpare pulmonary artery pressure, previously 57 mmHg. Study data: Transthoracic echocardiogram. Procedure: Transthoracic echocardiography was performed. Image quality was adequate. The study was technically limited due to poor patient compliance. Complete 2D, spectral Doppler, and color flow Doppler. Location: Bedside. Patient status: Inpatient. Patient room number: 453. Rhythm: Normal sinus rhythm. Findings Left ventricle: The cavity size is normal. Wall thickness is mildly increased. Systolic function is reduced. The estimated ejection fraction is 45-50%. Regional wall motion abnormalities: Hypokinesis of the apicalinferoseptal myocardium. Hypokinesis of the apical myocardium. Hypokinesis of the apicalinferior myocardium. Possible hypokinesis of the apicalanterior myocardium. Patient refused to valsalva. Features are consistent with a pseudonormal left ventricular filling pattern, with concomitant abnormal relaxation and increased filling pressure (grade 2 diastolic dysfunction). Right ventricle: The cavity size is normal. Systolic function is normal. Left atrium: The atrium is normal in size. Unable to measure from apical views. Right atrium: The atrium is normal in size. Visual estimate, unable to measure. Mitral valve: The leaflets are normal thickness. There is no evidence of stenosis. There is mild to moderate regurgitation. Aortic valve: The valve is trileaflet. The leaflets are normal thickness. There is no evidence of stenosis. There is trace to mild regurgitation. Tricuspid valve: The leaflets are normal thickness. There is no evidence of stenosis. There is trace regurgitation. Pulmonic valve: The leaflets are normal thickness. There is no evidence of stenosis. There is trace to mild regurgitation. Aorta: The aortic root appears normal. The aortic arch appears normal. Pericardium: There is no significant pericardial effusion. Pulmonary arteries: The main pulmonary artery is normal-sized. Systolic pressure can not be accurately estimated. Systemic veins: Inferior vena cava: The vessel is normal in size. There is (< 50%) respiratory change in the IVC dimension. Measurements Left ventricle Value Ref Mitral valve Value Ref LISA, LAX 4.6 cm 3.8 - 5.2 Peak E 0.85 m/sec ---- ESD, LAX 3.4 cm 2.2 - 3.5 Peak A 0.69 m/sec ---- FS, LAX (L) 26 % 27 - 45 Decel time 111 ms ---- PW, ED, LAX (H) 1.2 cm 0.6 - 0.9 Peak grad, D 2.9 mm Hg ---- EF (L) 51 % 54 - 74 Peak E/A ratio 1.2 ---- E', lat loraine, TDI (L) 6.7 cm/sec >=10.0 E/e', lat loraine, 13 Pulmonic valve Value Ref TDI Peak v, S 0.73 m/sec ---- E', med loraine, TDI (L) 6.6 cm/sec >=7.0 Peak grad, S 2.0 mm Hg ---- E/e', med loraine, 13 TDI Aortic root Value Ref E', avg, TDI 6.7 cm/sec Root diam 2.9 cm <3.6 E/e', avg, TDI 13 <=14 Ascending aorta Value Ref LVOT Value Ref AAo AP diam, S 2.7 cm ---- Peak sarah, S 0.82 m/sec Mean grad, S 1 mm Hg Aortic arch Value Ref Arch diam 2.4 cm ---- Ventricular septum Value Ref IVS, ED (H) 1.3 cm 0.6 - 0.9 Decending aorta Value Ref Gee peak sarah 0.85 m/sec ---- Right ventricle Value Ref LISA, LAX 2.3 cm Inferior vena cava Value Ref Diam 1.7 cm ---- Left atrium Value Ref AP dim, ES 3.70 cm 2.70 - Pulmonary veins Value Ref 3.80 Peak v, S 0.64 m/sec ---- Peak v, D 0.51 m/sec ---- Right atrium Value Ref Peak S/D ratio 1.3 ---- Estimated RAP 8 mm Hg A rev duration 92 ms ---- Aortic valve Value Ref Loraine diam, ED 1.7 cm Peak v, S 0.87 m/sec VTI, S 14.8 cm Mean grad, S 1.0 mm Hg Peak grad, S 3.0 mm Hg Legend: (L) and (H) dominick values outside specified reference range. Prepared and electronically signed by Bharati Treadwell MD 03/28/2019 10:44
--- NOTE | 2019-03-28 11:44 | PN ---
Subjective Date of Service: 03/28/19 - CC: SOB, panicky Interval History: The patient wants to go home, she is feeling better. The patient is now coughing up yellow phlegm, she feels better coughing. No CP. No orthopnea. Medications Active Medications: Aspirin (Aspirin 81 Mg Chew Tab*) 81 mg PO DAILY PENDING SALE TO [facility] Last Admin: 03/28/19 09:02 Dose: 81 mg Atorvastatin Calcium (Lipitor*) 80 mg PO 1700 PENDING SALE TO [facility] Dextrose (Dextrose 50% Vial 50 Ml*) 25 ml IV PUSH .FOR FS < 60 - SS PRN PRN Reason: FS < 60 Hydralazine HCl (Apresoline Iv*) 10 mg IV SLOW PU Q2H PRN PRN Reason: Systolic Bp Greater Than:180 Cefepime HCl (Maxipime 1 Gm In Dextrose Duplex (*)) 1 gm in 50 mls @ 100 mls/ hr IV Q24H PENDING SALE TO [facility] Last Admin: 03/27/19 19:57 Dose: 100 mls/hr Metronidazole/Sodium Chloride (Flagyl 500 Mg Ivpb*) 500 mg in 100 mls @ 100 mls /hr IVPB Q12H PENDING SALE TO [facility] Last Admin: 03/28/19 06:42 Dose: 100 mls/hr Insulin Human Lispro (Humalog*) 0 units SUBCUT MERGED WITH [facility] PENDING SALE TO [facility]; Protocol Last Admin: 03/28/19 07:48 Dose: Not Given Lisinopril (Prinivil Tab*) 5 mg PO DAILY PENDING SALE TO [facility] Last Admin: 03/28/19 09:02 Dose: 5 mg Lorazepam (Ativan Inj*) 1 mg IV PUSH Q6H PRN PRN Reason: ANXIETY Last Admin: 03/27/19 23:19 Dose: 1 mg Metoprolol Tartrate (Lopressor Tab*) 25 mg PO Q6H PENDING SALE TO [facility] Last Admin: 03/28/19 06:48 Dose: 25 mg Miscellaneous (Ativan Pyxis [place]) 1 ea N/A .ATIVAN IV [place] PRN PRN Reason: PYXIS [place] Morphine Sulfate (Morphine Inj (Syringe))*) 2 mg IV Q6H PRN PRN Reason: PAIN - SEVERE Nicotine (Nicotine Patch 14 Mg/24 Hr*) 1 patch TRANSDERM DAILY PENDING SALE TO [facility] Last Admin: 03/28/19 09:02 Dose: Not Given Nitroglycerin (Nitroglycerin Tab 0.4 Mg*) 0.4 mg SL Q5M PRN PRN Reason: ANGINA Pantoprazole Sodium (Protonix Iv*) 40 mg IV DAILY PENDING SALE TO [facility] Last Admin: 03/28/19 09:02 Dose: 40 mg Pharmacy Profile Note (Nicotine Patch Removal Note*) 1 note FOLLOW UP 06 PENDING SALE TO [facility] Last Admin: 03/28/19 06:52 Dose: Not Given Objective Vital Signs: Temp Pulse Resp BP Pulse Ox 99 F 78 18 136/81 100 03/28/19 07:15 03/28/19 07:15 03/28/19 09:15 03/28/19 07:15 03/28/19 07:15 Vital Signs 03/27/19 03/27/19 03/27/19 22:00 22:17 23:19 Temperature 98.1 F 99.5 F Pulse Rate 85 89 Respiratory 24 24 24 Rate Blood Pressure 182/89 147/87 (mmHg) O2 Sat by Pulse 100 99 Oximetry 03/28/19 03/28/19 03/28/19 00:00 00:40 00:45 Temperature 99 F Pulse Rate 85 Respiratory 22 Rate Blood Pressure 136/82 (mmHg) O2 Sat by Pulse 99 100 Oximetry 03/28/19 03/28/19 03/28/19 04:23 06:49 07:15 Temperature 98.9 F 99 F Pulse Rate 88 84 78 Respiratory 24 16 Rate Blood Pressure 139/82 149/86 136/81 (mmHg) O2 Sat by Pulse 99 100 Oximetry 03/28/19 03/28/19 03/28/19 09:15 11:15 15:15 Temperature 98.0 F Pulse Rate 73 81 Respiratory 18 16 18 Rate Blood Pressure 141/78 157/93 (mmHg) O2 Sat by Pulse 100 100 Oximetry Oxygen Devices in Use Now: Nasal Cannula Appearance: Cachectic middleaged female curled up in bed, Responded to questions. Eyes: PERRLA Ears/Nose/Mouth/Throat: Mucous Membranes Moist - poor dentition Neck: - - external neck veins distended. Respiratory: - - pleural rub, crackles left base. Diminished BS and crackles right base. Abdominal: - - cachectic Extremities: - - Marked deformation of the hands/fingers. Skin: - - dark complection. Lines/Tubes/Other Access: Clean, Dry and Intact Peripheral IV Laboratory Results: 03/28/19 06:30 03/28/19 06:30 Total Bilirubin 0.50 mg/dL (0.2-1.0) 03/27/19 00:46 AST 24 U/L (13-39) 03/27/19 00:46 ALT 10 U/L (7-52) 03/27/19 00:46 Alkaline Phosphatase 89 U/L (34-104) 03/27/19 00:46 B-Natriuretic Peptide > 1300 pg/mL (<=100) H 03/27/19 00:46 Total Protein 6.9 g/dL (6.4-8.9) 03/27/19 00:46 Albumin 3.8 g/dL (3.2-5.2) 03/27/19 00:46 Globulin 3.1 g/dL (2-4) 03/27/19 00:46 Albumin/Globulin Ratio 1.2 (1-3) 03/27/19 00:46 TSH 4.67 mcIU/mL (0.34-5.60) 03/27/19 00:46 03/27/19 03/27/19 03/27/19 00:46 07:42 12:38 Troponin I 0.17 H* 0.69 H* 0.47 H* 03/28/19 06:30 Troponin I 0.12 H* Diagnostic Imaging: Findings Left ventricle: The cavity size is normal. Wall thickness is mildly increased. Systolic function is reduced. The estimated ejection fraction is 45-50%. Hypokinesis of the apicalinferoseptal myocardium. Hypokinesis of the apical myocardium. Features are consistent with a pseudonormal left ventricular filling pattern, with concomitant abnormal relaxation and increased filling pressure (grade 2 diastolic dysfunction). Right ventricle: Systolic function is normal. Mitral valve: There is mild to moderate regurgitation. Aortic valve: There is trace to mild regurgitation. Tricuspid valve: There is trace regurgitation. Pericardium: There is no significant pericardial effusion. Assessment/Plan 48 yo female with systemic sclerosis, RA, non ischemic CM, normal coronaries on distant cath. Now presents with "panick attack" found hypertensive, with CHF, acidemia and mild bump in troponins and now apical CM instead of global hypokinesis. +CKD with acute on chronic presentation. Clinically improved with resumption of antihypertensives. The patient is at risk for CHF from depressed EF and moderately abnormal diastolic filling. CM: BB resumed, safest medication, benifits CM, protects if underling CAD and treats HTN. Ischemia: For CM with focal wall motion and trop bump and CP with panick feeling, could get a [id number]-myoview, but some risk with asthma. No cath as not an interventional candidate now. Alternatively can medically manage for now for CM/possible CAD, if renal function improves could stress. ACEI is beneficial for CM and HTN, but defer to internal medicine/renal wrt CKD+ scleroderma. Anemia contributes to diastolic CHF. Scleroderma: Defer to medicine/Rheum on resuming plaquinil/predisone. Per hospitalist verbal discussion, the patient declined steroids this admission. High risk patient medically and psychological and social issues make effective management more difficult.
[2019-03-28] MEDS ORDERED: amLODIPine TAB* 5 MG PO SCH (12:00)
[2019-03-28 12:30] LABS: Cholesterol 105 mg/dL; HDL Cholesterol 22.9 mg/dL; LDL Cholesterol 44 mg/dL; Triglycerides 192 mg/dL
[2019-03-28] MEDS ORDERED: NS 0.9% 500 ML* 500 ML IV SCH (13:00)
--- NOTE | 2019-03-28 13:20 | CONS ---
CC: Dr. Sravan Ulrich; Hospitalist Service * CONSULTATION REPORT: DATE OF CONSULT: 03/27/19 REASON FOR CONSULTATION: Cardiomyopathy and shortness of breath, possible congestive heart failure. HISTORY OF PRESENT ILLNESS: Danielle Amador is a 48-year-old woman with scleroderma and nonischemic cardiomyopathy who was followed by Dr. Sravan Ulrich in the past. The patient presented to the hospital when she suddenly became extremely panicky and short of breath. Her is with her and they describe this as panic attacks that she has started having several years ago when she was found to have hypertension. The patient ran out of lisinopril about 2 weeks ago, they estimate. In the emergency room, her blood pressure was very high. The patient denied any recent nonsteroidal use. She was cachectic, but says she is eating and thinks she may have gained some weight. She admits to smoking marijuana for chronic pain, but denies any other recreational drug and denies alcohol. Currently, the patient states that her breathing is much better after her treatment which included initiation of labetalol, lisinopril, and antibiotics for possible pneumonia. PAST MEDICAL HISTORY: The patient has a past medical history of: 1. Systemic sclerosis. 2. Nonischemic cardiomyopathy. 3. Hypertension. 4. Reflux. 5. Asthma. 6. Rheumatoid arthritis (per Dr. Gasca). MEDICATIONS: Outpatient medications: It sounds like she was probably out of all meds as she has not had a backshoe person in a long time, was last seen by Rheumatology in [address] Ulrich in July 2017. Past medications in 2018 included: 1. Metoprolol long acting 25 mg a day. 2. Lisinopril 20 mg a day. 3. Plaquenil 200 mg a day. 4. Prednisone 20 mg a day. 5. Neurontin 300 mg a day. 6. Zyrtec. 7. Tylenol with Codeine. 8. Chantix. 9. Aspercreme. Inpatient medications include: 1. Aspirin 81 mg a day. 2. Lipitor 80 mg a day. 3. Cefepime. 4. D50 p.r.n. 5. Lasix 40 mg IV x1. 6. Hydralazine p.r.n. 7. Lisinopril 5 mg a day. 8. Ativan p.r.n. 9. Lopressor 25 mg q.6 hours. 10. Flagyl. 11. Morphine p.r.n. 12. Nicotine patch. 13. Nitroglycerin p.r.n. 14. Protonix 40 mg a day. Recent medications included: 1. Lovenox IV. 2. Lasix. ALLERGIES: Include PENICILLIN, AMPICILLIN, TYLENOL, BACTRIM, ASPIRIN, and TRAMADOL. FAMILY HISTORY: Unknown. SOCIAL HISTORY: The patient is a smoker. She denies current alcohol use and as above, admits to marijuana, but denies any other recreational drugs. She used cocaine in the past. The patient has a significant other, she says is her , who was present at the exam. She has a history of scabies in the past and in the emergency room was treated for bedbugs and scabies. She is living in an apartment now, but has lived in homeless shelters in the past. REVIEW OF SYSTEMS: The patient is a difficult historian, but she states she has chronic pain all over. She uses a wheelchair due to her scleroderma. She says her appetite is good despite her cachexia. She denies recent fevers or chills. Her breathing has been bad with worsening "panic attacks" where she cannot breathe. Other review of systems is not obtained due to the patient's poor historical abilities and intermittent emotional lability. The patient has poor dentition with dentist telling her all teeth need to be removed, but will not do it until her blood pressure is controlled. PHYSICAL EXAM: On exam, the patient is a slight woman and also cachectic, appears chronically ill. Her skin is very dark. Vitals on arrival to the emergency room, blood pressure 217/143. Vitals at the time I saw her were blood pressure 135/80, pulse was 84, temperature 100.1, oxygen saturation 100%. HEENT: Pupils are equal and round. Mucous membranes moderately moist. Poor dentition diffusely (the patient states all teeth need to be removed). Neck: Without appreciable increased JVP. Good carotid pulses without audible bruits. Breath sounds distant with a few crackles in the bases. Coronary: S1, S2 regular without murmurs. No rubs. Abdomen: Flat, cachectic with hepatomegaly and mild tenderness in the right upper quadrant. Lower extremities are free of edema. Her hands and fingers showed marked deformations consistent with arthritis and some puffiness consistent with her scleroderma. DIAGNOSTIC STUDIES/LAB DATA: Chest x-ray reviewed personally and report reviewed; marked hyperinflation, mild fluffiness particularly in the right base which was interpreted as congestive heart failure or pneumonia. EKG on admission shows sinus tachycardia, 103 beats a minute, QRS axis +90, normal AV and IV conduction times, left ventricular hypertrophy, and repolarization abnormalities with deeply inverted T waves, V4 through V6. When this is compared with her EKG from 08/05/17 in the office, the T-wave inversions are new and the axis has shifted further rightward. Echocardiogram from June 2016 shows an ejection fraction of 35% to 40% with global hypokinesis, [id number] mitral insufficiency, mild tricuspid insufficiency, PA pressure was estimated at 57 mmHg. Cardiac catheterization from 06/15/15 showed normal coronaries, left ventricular end-diastolic pressure was not reported. Labs show white count 13.3, decreased from 21 on admission; hematocrit 21; mean cell volume 78; platelets 224. No sed rate obtained. C-reactive protein 1. Sodium 138, potassium 4.5, chloride 110, bicarb 19, BUN 44, creatinine 2.01, glucose 90, calcium 7.8. Lactic acid initially 2.2. Troponin #1, 0.47; #2, 0.69; #3, 0.17. Iron 35, TIBC 351, percent saturation 10. Normal transaminases. LDH 364. TSH 4.67. Total protein 6.9, albumin 3.8, lipase 77. Urinalysis: Specific gravity 1.006; positive for blood, leukocyte esterase, and white cells; nitrite negative. Microbiology: It does not look like a urine culture was done. Venous blood done negative. Toxicology: Positive for marijuana, negative for all else. ABG at 1:55 in the morning showed pH 7.35, pCO2 of 29, pO2 of 85, HCO3 18.5, oxygen saturation 97.6%. ASSESSMENT AND PLAN: In summary, Danielle Amador is a 48-year-old woman with systemic scleroderma and nonischemic cardiomyopathy with normal coronaries in 2014. The patient has poor social structure, has been lost to follow up, it looks like for at least a year and a half for Cardiology and longer for Rheumatology and primary care, and presented with inability to breathe, what she calls a panic attack, and marked hypertension. I suspect the presentation was related to her hypertension as has been in the past leading to diastolic congestive heart failure, and with her history of asthma, there could certainly be a component of bronchospasm as well. The elevated troponins are most likely demand ischemia, and looking at old records, they have been elevated in past presentations when she was documented have normal coronaries. For the patient's elevated troponins, I think there is a low suspicion that she would have developed coronary artery disease even with her active smoking. With her history, I am not planning on stressing her at this point. For the patient's history of scleroderma, nonischemic cardiomyopathy, it has been as low as 25%, and medication noncompliance, I am recommending we update her echocardiogram. I agree with the medication resumption of beta-blockers and YONI inhibitors for her hypertension and await her echo prior to making additional recommendations. For the patient's acid-base status, this is undoubtedly contributing to her sense of well-being and I think it is due to her tachypnea and appears to be correcting/improving. Her renal insufficiency is likely related to hypertension and scleroderma and needs to be watched carefully. This may preclude use of YONI inhibitors or minimize the ability to use them. If this is the case, consideration of switching a pure beta-sheila to Coreg could be made. Overall, Danielle despite being 48 years old is extremely ill and high risk patient with evidence of multisystem illness. If able as an inpatient, I would consider seeking rheumatology assistance for resumption of her Plaquenil and steroids or other autoimmune medications. [id number]/[facility] #: [id number] IVONNE
--- NOTE | 2019-03-28 14:22 | CONSULT ---
Consult Consult: Nephrology Consult Consult requested By: Hospitalist. Dr. Shari Rowland Consult requested for: SENG. Possible Scleroderma Crises Consult By: Dr. Mariano Bray, [facility] Nephrology HPI: 48 yo f. Non compliant. Seen at bedside: severe scleroderma and skin tightening. Very cachectic and apparently malnourished Admitted with very high and symptomatic HTN: 210/110. sCr on admission was 1.66, few hours later ----> 2.1---> 24Hr later 2.59----> today 2.89 Baseline sCr Normal. She was found to be in acute SOB, possible Aspiration PNA. Known severe Generalized Scleroderma. On no meds at home, with terrible F/U. She's known to have HFrEF, likely Non-Ischemic, with LVEF 35-40%. She's non ambulatory at baseline in count of advanced Scleroderma. On admission, in ED, she was given 1.5L of IVF, developed worsening SOB, s/p IV Lasix X 2, by ED. She was started on PO ACEI by hospitalist, and since sCr jumped up 2.59! ACEI is the standard Rx of choice for Scleroderma Renal Crises. She presented with chest tightness and SOB that lasted around 10 minutes. Of note, she had +ve trop with non specific EKG changes. s/p Cardiac eval & Echo Of note, Anemia at baseline Hb 8ish. Now Hb 6.1. Low Fe indices. s/p PRBCs PMH: Anxiety HFrEF. LVEF 35-40% 2015, improved to 45% 2018 with apical hypokinesis s/p IV Lasix 40mg daily x 2 days, Hypertensive emergency, s/p labetolol 20mg IV Non-ST elevation MO HTN Scleroderma Sclerodactyly Poor Compliance Possible Substance Abuse Anemia InPt Meds: Amlodipine Besylate (Norvasc Tab*) 5 mg PO DAILY [facility] Aspirin (Aspirin 81 Mg Chew Tab*) 81 mg PO DAILY [facility] Last Admin: 03/28/19 09:02 Dose: 81 mg Atorvastatin Calcium (Lipitor*) 80 mg PO 1700 [facility] Dextrose (Dextrose 50% Vial 50 Ml*) 25 ml IV PUSH .FOR FS < 60 - SS PRN PRN Reason: FS < 60 Hydralazine HCl (Apresoline Iv*) 10 mg IV SLOW PU Q2H PRN PRN Reason: Systolic Bp Greater Than:180 Cefepime HCl (Maxipime 1 Gm In Dextrose Duplex (*)) 1 gm in 50 mls @ 100 mls/ hr IV Q24H [facility] Last Admin: 03/27/19 19:57 Dose: 100 mls/hr Metronidazole/Sodium Chloride (Flagyl 500 Mg Ivpb*) 500 mg in 100 mls @ 100 mls /hr IVPB Q12H [facility] Last Admin: 03/28/19 06:42 Dose: 100 mls/hr Sodium Chloride (Ns 0.9% 500 Ml*) 500 mls @ 75 mls/hr IV PER RATE [facility] Stop: 03/28/19 19:39 Last Admin: 03/28/19 12:26 Dose: 75 mls/hr Lisinopril (Prinivil Tab*) 2.5 mg PO DAILY [facility] Lorazepam (Ativan Inj*) 1 mg IV PUSH Q6H PRN PRN Reason: ANXIETY Last Admin: 03/27/19 23:19 Dose: 1 mg Metoprolol Tartrate (Lopressor Tab*) 25 mg PO Q8H [facility] Last Admin: 03/28/19 12:01 Dose: 25 mg Miscellaneous (Ativan Pyxis [place]) 1 ea N/A .ATIVAN IV [place] PRN PRN Reason: PYXIS [place] Morphine Sulfate (Morphine Inj (Syringe))*) 2 mg IV Q6H PRN PRN Reason: PAIN - SEVERE Nicotine (Nicotine Patch 14 Mg/24 Hr*) 1 patch TRANSDERM DAILY [facility] Last Admin: 03/28/19 09:02 Dose: Not Given Nitroglycerin (Nitroglycerin Tab 0.4 Mg*) 0.4 mg SL Q5M PRN PRN Reason: ANGINA Pharmacy Profile Note (Nicotine Patch Removal Note*) 1 note FOLLOW UP 0600 [facility] Last Admin: 03/28/19 06:52 Dose: Not Given Home Meds: None Allergies, Social History,Family History &Surgical History:Reviewed 12-Point Review of Systemobtained: -ve except for Above Constitutional no fever. Cachexia Eyes No blurry vision CV no CP, no edema Resp No shortness of breath no cough no wheezing G.I. no diarrhea no nausea no vomiting no pain no blood per rectum no burning no obstruction symptoms Skin: Sclerodactyly & Calcinosis Cutis Neurology Contractures Endocrine no diabetes Hem/Lymp no bleeding no lymph nodes Immun/Allergy no allergic actions Musculoskeletal hand contractures. tight skin no ulcers Psych no anxiety no depression no hallucination Objective: Vital Signs: Temp Pulse Resp BP Pulse Ox 99 F 73 16 141/78 100 03/28/19 07:15 03/28/19 11:15 03/28/19 11:15 03/28/19 11:15 03/28/19 11:15 Temp Pulse Resp BP Pulse Ox 98.5 F 67 16 135/77 100 03/29/19 07:15 03/29/19 07:15 03/29/19 08:00 03/29/19 07:15 03/29/19 08:00 10 Pointmulti systemexam: Constitutional Alert Oriented x 3 Abdomen SoftAbdomen No Ascites Heart: NSR,No LE Edema, No murmur Lungs: Clear to auscultation, No Crackles Extremities: No edema, rash hand contractures. tight skin no ulcers Laboratory Reviewed 03/28/19 03/28/19 03/28/19 06:30 06:30 07:38 WBC 8.4 RBC 2.96 L Hgb 7.7 L Hct 23 L MCV 78 L MCH 26 L MCHC 34 RDW 17 H Plt Count 183 MPV 9.0 Neut % (Auto) 66.2 Lymph % (Auto) 19.2 [place] % (Auto) 8.1 Eos % (Auto) 5.6 Baso % (Auto) 0.9 Absolute Neuts (auto) 5.5 Absolute Lymphs (auto) 1.6 Absolute Monos (auto) 0.7 Absolute Eos (auto) 0.5 Absolute Basos (auto) 0.1 Absolute Nucleated RBC 0.0 Nucleated RBC % 0.0 Sodium 138 Potassium 4.2 Chloride 110 Carbon Dioxide 19 L Anion Gap 9 BUN 57 H Creatinine 2.59 H Est GFR ( Amer) 24.1 Est GFR (Non-Af Amer) 19.9 BUN/Creatinine Ratio 22.0 H Glucose 89 POC Glucose (mg/dL) 94 Calcium 8.1 L Troponin I 0.12 H* Triglycerides 192 Cholesterol 105 LDL Cholesterol 44 HDL Cholesterol 22.9 Urine Color Urine Appearance Urine pH Ur Specific [place] Urine Protein Urine Ketones Urine Blood Urine Nitrate Urine Bilirubin Urine Urobilinogen Ur Leukocyte Esterase Urine WBC (Auto) Urine RBC (Auto) Ur Squamous Epith Cells Urine Bacteria Urine Glucose Blood Type Antibody Screen Crossmatch Transfusion React Rpt Donor Unit # Post-Trans Blood Type Post-Trans LUCAS Laboratory Results - last 24 hr 03/28/19 03/28/19 03/28/19 06:30 11:35 16:43 WBC RBC Hgb Hct MCV MCH MCHC RDW Plt Count MPV Neut % (Auto) Lymph % (Auto) Deuel % (Auto) Eos % (Auto) Baso % (Auto) Absolute Neuts (auto) Absolute Lymphs (auto) Absolute Monos (auto) Absolute Eos (auto) Absolute Basos (auto) Absolute Nucleated RBC Nucleated RBC % Sodium 138 Potassium 4.2 Chloride 110 Carbon Dioxide 19 L Anion Gap 9 BUN 57 H Creatinine 2.59 H Est GFR ( Amer) 24.1 Est GFR (Non-Af Amer) 19.9 BUN/Creatinine Ratio 22.0 H Glucose 89 POC Glucose (mg/dL) 98 105 H Calcium 8.1 L Troponin I 0.12 H* Triglycerides 192 Cholesterol 105 LDL Cholesterol 44 HDL Cholesterol 22.9 Ur Creatinine Concen Ur Total Protein Conc 03/28/19 03/28/19 03/29/19 17:15 21:32 05:55 WBC 7.4 RBC 3.18 L Hgb 8.2 L Hct 25 L MCV 77 L MCH 26 L MCHC 33 RDW 18 H Plt Count 187 MPV 8.6 Neut % (Auto) 61.7 Lymph % (Auto) 19.9 Deuel % (Auto) 9.6 Eos % (Auto) 7.9 Baso % (Auto) 0.9 Absolute Neuts (auto) 4.6 Absolute Lymphs (auto) 1.5 Absolute Monos (auto) 0.7 Absolute Eos (auto) 0.6 Absolute Basos (auto) 0.1 Absolute Nucleated RBC 0.0 Nucleated RBC % 0.0 Sodium Potassium Chloride Carbon Dioxide Anion Gap BUN Creatinine Est GFR ( Amer) Est GFR (Non-Af Amer) BUN/Creatinine Ratio Glucose POC Glucose (mg/dL) 100 Calcium Troponin I Triglycerides Cholesterol LDL Cholesterol HDL Cholesterol Ur Creatinine Concen 10.00 Ur Total Protein Conc 43 03/29/19 03/29/19 05:55 07:38 WBC RBC Hgb Hct MCV MCH MCHC RDW Plt Count MPV Neut % (Auto) Lymph % (Auto) Deuel % (Auto) Eos % (Auto) Baso % (Auto) Absolute Neuts (auto) Absolute Lymphs (auto) Absolute Monos (auto) Absolute Eos (auto) Absolute Basos (auto) Absolute Nucleated RBC Nucleated RBC % Sodium 138 Potassium 4.1 Chloride 105 Carbon Dioxide 23 Anion Gap 10 BUN 59 H Creatinine 2.89 H Est GFR ( Amer) 21.2 Est GFR (Non-Af Amer) 17.5 BUN/Creatinine Ratio 20.4 H Glucose 107 H POC Glucose (mg/dL) 113 H Calcium 8.5 L Troponin I 0.03 Triglycerides Cholesterol LDL Cholesterol HDL Cholesterol Ur Creatinine Concen Ur Total Protein Conc Assessment and Plan: Malignant HTN, Better Control Anemia: R/O Myeloma. s/p PRBCs. Hb 6.1--->8.2 Scleroderma Renal Crises: She fulfills criteria for SRC, with new or worsening SENG and HTN. Rx of choice is ACEI. Continue ACEI Electrolytes: Ok. Correct Acidosis, only if PH <7.2-7.3 SENG: Multifactorial, May continue ACEI as long as K is Ok. May up titrate ACEI as long as sCr is stable. SRC may progress to ESRD. Volume: Agree with NS gentle Hydration UA & ++ UPtn: Urine Ptn/Cr is high 43/10, albeit in a setting of SENG, with Low UCr: which overestimates UPtn. GN serology W/U is in order.
[2019-03-28] MEDS: Atorvastatin* 80 MG TAB PO SCH (16:33)
--- NOTE | 2019-03-28 16:44 | PN ---
Progress Note - Progress Note Date of Service: 03/28/19 Note: Saw Danielle today to do a repeat capacity determination for her to leave AMA. Patient reports she feels a lot better today and would like to go home. She is aware of the fact that if she leaves the hospital without completing her treatments there is a very high chance that she may . She also understands that the chronic disabling and fatal health conditions that she has been suffering from will never be cured. Hence she would like to be discharged. However, she will think about staying little longer even if she doesn't like. Today she appears more in agreement with her medical teams decision. She is alert and oriented to time, place and person. Her mood is still depressed with anxious affect. Ther is no evidence of thoughts or perceptual disturbances. Denies suicidal or homicidal ideation. Insight and judgments fair to good as evidenced by her active participation in her care at this time. It is my understanding today that Ms. Amador has mental capacity to decide to stay or leave the hospital AMA. Thanks to the medical team for their compassion for Ms. Levin and asking for the consult.
[2019-03-28] MEDS: Cefepime 1 GM in Dextrose(*) 1 GM/50 ML BAG IV SCH (17:08)
[2019-03-28] MEDS: LORazepam INJ* 2 MG/ML 1 ML VIAL IV PUSH PRN ×2 (17:46→21:59)
[2019-03-28] MEDS: Heparin VIAL(*) 5000 UNITS/ML VIAL (FIVE THOUSAND) SUBCUT SCH (22:05)
[2019-03-29] MEDS: Metoprolol Tartrate TAB* 25 MG PO SCH ×2 (04:07→12:44)
[2019-03-29] MEDS: metroNIDAZOLE IV 500 MG/100ML* 500 MG/100 ML BAG IVPB SCH ×2 (05:55→17:06)
[2019-03-29] MEDS: Nicotine Patch Removal NOTE FOLLOW UP SCH (06:00)
[2019-03-29 06:06] LABS: ABS Basophils 0.1 10^3/ul (0-0.2); ABS Eosinophils 0.6 10^3/ul (0-0.6); ABS Lymphocytes 1.5 10^3/ul (1.0-4.8); ABS Monocytes 0.7 10^3/ul (0-0.8); ABS Neutrophils 4.6 10^3/ul (1.5-7.7); Eosinophil % 7.9 %; Hematocrit 25 % (35-47); Hemoglobin 8.2 g/dL (12.0-16.0); Lymphocyte % 19.9 %; Mean Corpuscular HGB Conc 33 g/dL (31-36); Mean Corpuscular Hemoglobin 26 pg (27-31); Mean Corpuscular Volume 77 fL (80-97); Mean Platelet Volume 8.6 fL (7.4-10.4); Platelet Count 187 10^3/uL (150-450); Red Blood Count 3.18 10^6 /uL (3.70-4.87); Red Cell Distribution Width 18 % (10-15); White Blood Count 7.4 10^3/uL (3.5-10.8)
[2019-03-29 06:24] LABS: BUN/Creatinine Ratio 20.4 (8-20); Calcium 8.5 mg/dL (8.6-10.3); EGFR African American 21.2 (>60); EGFR Non-African American 17.5 (>60); Potassium 4.1 mmol/L (3.5-5.0)
[2019-03-29 06:26] LABS: Troponin I 0.03 ng/mL (<0.04)
--- NOTE | 2019-03-29 07:30 | PN ---
Subjective Date of Service: 03/29/19 Interval History: HD 3 on 03/29 48 F PMH scleroderma with sclerodactly and joint restriction, non ambulatory at baseline, anxiety/depression, tob use, NICM with HFrEF (last EF in 2017 35%) , HTN, remote hx of PSA (cocaine, never IVDU), cachexia (last weight in 2017 also 87 lbs) who presented with SOB HTN emergency with elevated troponin, CHF exacerbation and hypoxia, sepsis with possible early PNA, and severe AGMA. She has requested to leave AMA several times on 03/27. Overnight: No acute issues VS stable s/p 2 U PRBC; Hb 8.2 NEphro and cardio following Echo done yesterday- Ef 45-50%; apical hypokinesis has mental capacity to leave AMA as per psych Objective Active Medications: Amlodipine Besylate (Norvasc Tab*) 5 mg PO DAILY [facility] Aspirin (Aspirin 81 Mg Chew Tab*) 81 mg PO DAILY [facility] Last Admin: 03/28/19 09:02 Dose: 81 mg Atorvastatin Calcium (Lipitor*) 80 mg PO 1700 [facility] Last Admin: 03/28/19 16:33 Dose: 80 mg Dextrose (Dextrose 50% Vial 50 Ml*) 25 ml IV PUSH .FOR FS < 60 - SS PRN PRN Reason: FS < 60 Heparin Sodium (Porcine) (Heparin Vial(*)) 5,000 units SUBCUT Q12HR [facility] Last Admin: 03/28/19 22:05 Dose: Not Given Hydralazine HCl (Apresoline Iv*) 10 mg IV SLOW PU Q2H PRN PRN Reason: Systolic Bp Greater Than:180 Cefepime HCl (Maxipime 1 Gm In Dextrose Duplex (*)) 1 gm in 50 mls @ 100 mls/ hr IV Q24H [facility] Last Admin: 03/28/19 17:08 Dose: 100 mls/hr Metronidazole/Sodium Chloride (Flagyl 500 Mg Ivpb*) 500 mg in 100 mls @ 100 mls /hr IVPB Q12H [facility] Last Admin: 03/29/19 05:55 Dose: 100 mls/hr Lisinopril (Prinivil Tab*) 2.5 mg PO DAILY [facility] Lorazepam (Ativan Inj*) 1 mg IV PUSH Q4H PRN PRN Reason: ANXIETY Last Admin: 03/28/19 21:59 Dose: 1 mg Metoprolol Tartrate (Lopressor Tab*) 25 mg PO Q8H [facility] Last Admin: 03/29/19 04:07 Dose: 25 mg Miscellaneous (Ativan Pyxis [place]) 1 ea N/A .ATIVAN IV [place] PRN PRN Reason: PYXIS [place] Morphine Sulfate (Morphine Inj (Syringe))*) 2 mg IV Q6H PRN PRN Reason: PAIN - SEVERE Last Admin: 03/28/19 16:34 Dose: 2 mg Nicotine (Nicotine Patch 14 Mg/24 Hr*) 1 patch TRANSDERM DAILY [facility] Last Admin: 03/28/19 09:02 Dose: Not Given Nitroglycerin (Nitroglycerin Tab 0.4 Mg*) 0.4 mg SL Q5M PRN PRN Reason: ANGINA Last Admin: 03/28/19 16:34 Dose: 0.4 mg Pharmacy Profile Note (Nicotine Patch Removal Note*) 1 note FOLLOW UP 0600 [facility] Last Admin: 03/29/19 06:00 Dose: Not Given Vital Signs - 8 hr 03/28/19 03/29/19 03/29/19 23:50 00:00 03:15 Temperature 98.5 F Pulse Rate 72 Respiratory 18 18 Rate Blood Pressure 122/77 (mmHg) O2 Sat by Pulse 100 100 Oximetry Oxygen Devices in Use Now: None Exam: Patient is thin built;mouse like facies; is lying on a bed with nasal cannula. HEENT: Normocephalic and atraumatic Lungs: Crackles heard on lower lung base. Heart: S1/S2 heard with no murmur. Abdomen: Soft, nondistended and nontender. Extremity: Bony deformity and contractures seen on fingers. NO any swelling Neuro: Alert, conscious and oriented Result Diagrams: 03/29/19 05:55 03/29/19 05:55 Additional Lab and Data: Microbiology and Other Data: Microbiology 03/27/19 22:41 Transfusion Reaction Gram Stain - Final Blood Bag 03/27/19 03:35 Aerobic Blood Culture - Final Blood Venous Not Reportable Anaerobic Blood Culture - Final Not Reportable Blood Culture - Preliminary No Growth Day 1 03/27/19 03:35 Aerobic Blood Culture - Final Blood Venous Not Reportable Anaerobic Blood Culture - Final Not Reportable Blood Culture - Preliminary No Growth Day 1 03/27/19 22:32 Streptococcus pneumoniae Ag Screen - Final Urine Negative S. pneumo Antigen Diagnostic Imaging: Echo: EF 45-50%, apical hypokinesis Assess/Plan/Problems-Billing Assessment: 48 F PMH scleroderma with sclerodactly and joint restriction, non ambulatory at baseline, anxiety/depression, tob use, NICM with HFrEF (last EF in 2017 35%) , HTN, remote hx of PSA (cocaine, never IVDU), cachexia (last weight in 2017 also 87 lbs) who presented with SOB HTN emergency with elevated troponin, CHF exacerbation and hypoxia, r/o ACS, sepsis with PNA, and severe AGMA. Hospital course c/b severe anxiety and now SENG concerning for renal crisis. Her collection of sx is concerning for cardiac involvement of scleroderma and myocardial fibrosis which can lead to ACS and myocarditis. Furthermore she has FTT with cachexia, pneumonia in RLL, and worsening renal function concerning for scleroderma renal crisis vs SENG from other offending agents (such as intravascular depletion). - Patient Problems (1) Non-ST elevation AK (NSTEMI) Current Visit: Yes Status: Acute Code(s): I21.4 - NON-ST ELEVATION (NSTEMI) MYOCARDIAL INFARCTION SNOMED Code(s): 07649365 Comment: presented with chest tightness and sob that lasted around 10 minutes. elevated trop with lateral st depression and T inversion. aspirin, nitroglyerin, morphine, lovenox given. Dr. Treadwell contacted; Echo shows improved Ef with apical hypokinesis Difficult to access IV given her scleroderma trend troponin watch for any chest pain and decompensation. may be because of fibrosis of cardiac tissue and vessels 2/2 to SS or due to hypertensive emergency 2/2 SRC myocardial ischemia is common in SS so may be this causing her ischemic changes. Stress test deferrd dgiven her worsening creatnine has mental capacity to leave AMA HCP is her significant partner- John Paul Doyle([phone]) (2) Hypertensive emergency Current Visit: Yes Status: Acute Code(s): I16.1 - HYPERTENSIVE EMERGENCY SNOMED Code(s): 178715225756313 Comment: due to reanal crisis from scleroderma - Systolic BP in the 200s on admissoin - s/p labetolol 20mg IV, PRN Hydral - Decent control, on home lisinopril and Metoprolol, discuss with Nephrology who recommend to keep YONI I on in sceleroderma, low dose amlodipime added (3) Sepsis Current Visit: No Status: Acute Comment: - Source unknown-appears PNA - There is some haziness on right lower lung on xray. - Cefipime and Flagyl Day 3 on 03/29, this was broadened from CTX on 03/27 after persistent fever - Culture data NGTD thus far (4) Heart failure with reduced ejection fraction Current Visit: Yes Status: Acute Code(s): I50.20 - UNSPECIFIED SYSTOLIC ( CONGESTIVE) HEART FAILURE SNOMED Code(s): 992042350 Comment: - Echo in 2015 showed EF of 35-40%., improved to 45% 2019 with apical hypokinesis - IV Lasix 40mg daily x 2 days, hold / to SENG moving forward, will give back very gentle IVF 75cc x 500cc. (5) Anemia Current Visit: No Status: Acute Code(s): D64.9 - ANEMIA, UNSPECIFIED SNOMED Code(s): 855658410 Comment: - Likely secondary to chronic illness with component of iron deficiency. - sp 2UPRBC apprproate response, would benefit from IV iron if she stabilized (6) Scleroderma Current Visit: No Status: Acute Code(s): M34.9 - SYSTEMIC SCLEROSIS, UNSPECIFIED SNOMED Code(s): 60565734 Comment: - Severe, likely with multi organ involvement - Reports allergy to cellcept, LTFU for years, avoid steroids in current renal crisis - Request rheum to consult 03/29, anti-RNA Ploymerase 3 ordered (7) DVT prophylaxis Current Visit: No Status: Acute Code(s): UQT9079 - SNOMED Code(s): 714676824 Comment: - On lovenox treatment x1 03/27, can continue PPX with heparin unless otherwise advised to therapeutically anticoagulate (8) Full code status Current Visit: No Status: Acute Code(s): Z78.9 - OTHER SPECIFIED HEALTH STATUS SNOMED Code(s): 334707669 Status and Disposition: Inpatient Consultants: cardio, renal, psych and rheum to consult Social work to consult Ultimately this pt is quite sick but if deemed to have capacity may leave AMA though we will NOT arrange transport for her to go, her fianceToy would have to pick her up and take her out. Furthermore she is non ambulatory and would need to be wheeled out by her partner, not by hospital staff making the reality of a AMA d/c more complicated. Attempt to re direct and encourage pt to stay for completion of treatment, engagement in primary care and realistic conversations about severity of her illness. She responds well to ativan and gentle encouragement Patient wants to leave AMA. She understands her risk of leaving hospital at present. Has mental capacity to leave; as per psych consultation Attestation Documenting Resident: Levon Bird Supervising Physician: Johanna Wolfe Attestation: This service has been performed in part by a resident under the direction of a teaching physician.I, Johanna Wolfe, performed the service, or was physically present during the critical, or hughes portions of the service, furnished by the resident. I participated in the management of the patient.
[2019-03-29] MEDS ORDERED: Lisinopril TAB* 5 MG PO SCH (09:00)
[2019-03-29] MEDS ORDERED: amLODIPine TAB* 5 MG PO SCH (09:00)
[2019-03-29] MEDS: Nicotine PATCH 14 MG/24 HR* PATCH TRANSDERM SCH (09:48)
[2019-03-29] MEDS: Heparin VIAL(*) 5000 UNITS/ML VIAL (FIVE THOUSAND) SUBCUT SCH (09:48)
[2019-03-29] MEDS: Aspirin 81 mg CHEW TAB* 81 MG TAB.CHEW PO SCH (09:49)
[2019-03-29 13:50] LABS: Hepatitis B Surface Antigen Negative (Negative)
[2019-03-29 14:08] LABS: Hepatitis C Antibody Negative (Negative)
--- NOTE | 2019-03-29 15:51 | PN ---
PROGRESS NOTE: DATE OF SERVICE: 03/29/19 HISTORY: Ms. Amador is a 48-year-old female with a history of scleroderma who originally consulted on by Dr. Bray. She is admitted with a diagnosis of scleroderma renal crisis. She was really hypertensive on presentation. Her blood pressure was treated with lisinopril and it has come down to much more reasonable levels. Unfortunately, her creatinine has been rising since. She states she feels fine right now, would like to go home. She is very bothered by her Chandler catheter, which she states hurts and she would like that out. She has been eating and drinking. She is breathing well. She has no chest pain, no shortness of breath. No abdominal pain. No nausea, vomiting. She has not had a bowel movement here in the hospital. PHYSICAL EXAMINATION: Her blood pressure at the present time is 140/71 with a pulse of 64, respirations are 16. She has obvious stigmata of scleroderma with very tense skin over her face and sclerodactyly. She is quite thin. Her chest is clear. The heart revealed a regular rhythm. I did not hear any murmurs. The abdomen is soft and nontender. LABORATORY DATA: Her laboratory values reveal a white count of 7.4, hemoglobin of 8.2, her MCV was 77. Her electrolytes are within normal limits today. Her previous increased anion gap metabolic acidosis has resolved. Her BUN is 59, creatinine of 2.89. Her rate of rise of creatinine has actually been fairly stable. She has some evidence of iron deficiency with an iron saturation of 10% . Her ferritin is 35.3, which in a renal patient we would like to see above 100. Unfortunately, most the serologies that have been ordered over the weekend are not back yet. IMPRESSION: Scleroderma renal crisis with hypertension and worsening renal function. She is demanding having her Chandler catheter out. At this point, that is probably not unreasonable. She wants to go home. She states she feels just fine. On the other hand, her serum creatinine has still been rising as we would anticipate in a scleroderma renal crisis, particularly when she is being treated with an YONI inhibitor in the face of renal insufficiency when she has had malignant range hypertension. I would actually be a little nervous about sending her home, but I do not know that, that would be actually crazy considering that she might be able to come back for very close followup and is willing to be readmitted if things are not going along as anticipated. I will be discussing that Dr. Bray, the glove cuffer who saw her originally and will be doing the followup, and I will discuss that with Dr. Wolfe, her attending. [id number]/[facility] #: [id number] IVONNE
[2019-03-29 16:04] VITALS: BP 123/72
[2019-03-29] MEDS: Cefepime 1 GM in Dextrose(*) 1 GM/50 ML BAG IV SCH (17:05)
[2019-03-29] MEDS: Atorvastatin* 80 MG TAB PO SCH (17:18)
--- NOTE | 2019-03-29 18:32 | CONSULT ---
Consult Consult: Ms. Amador is a 48 year old woman with a long standing history of scleroderma admitted with possible sepsis and found to have a scleroderma renal crisis, which is currently being treated appropriately with an YONI inhibitor. At this point, she is leaving against medical advise. Please ask her to follow up with me in within 1 week
--- NOTE | 2019-03-29 20:44 | CONS ---
CONSULTATION REPORT: DATE OF CONSULT: 03/29/19 REASON FOR CONSULT: Scleroderma. CHIEF COMPLAINT: Hypertensive crisis. HISTORY OF PRESENT ILLNESS: Ms. Danielle Amador is a 48-year-old woman known to me, who has a longstanding history of scleroderma, nonischemic cardiomyopathy with pulmonary hypertension and reduced ejection fraction. She also has a history of hypertension and uncontrolled severe chronic pain and inflammatory arthritis. She had been in her usual state of health until she developed general malaise as well as chills and weakness and significant fatigue , but she denied fever, shortness of breath, although she had been having some chronic shortness of breath. She also had some squeezing chest discomfort prior to admission and was admitted through [facility] when she was found to have a leukocytosis of 21 with anemia and carbon dioxide of 12 with a lactic acid of 2.2 and a glucose of 219. She was also tachycardic, afebrile, and hypertensive initially. She initially was felt to have some kind of septic picture. She was given a liter of normal saline, ceftriaxone, and labetalol. Of note, she has had difficulty taking care of herself as well as getting to the recent appointments. In fact, I have not seen her in at least the last year if not more. During her hospital stay, she was admitted and also evaluated by Nephrology as well too. In terms of her present complaint, she says that she is feeling much better and in fact she wants to go home. Indeed at the time that I am interviewing her today, she apparently is leaving against medical advice. Further workup revealed normal CRP with an ABG showing a metabolic acidosis with an anion gap of 20. In terms of her hospital course, she is being seen by Cardiology as well as Nephrology. She was felt to have a scleroderma renal crisis and she was hypertensive on admission, and she was treated with lisinopril and has been coming down to a more reasonable level. Her creatinine has, however, been rising. She feels well and she is breathing well currently. It was advised that she continue to stay in the hospital especially as her serum creatinine is still rising. She was also advised to follow up very closely as an outpatient. She was also seen by Cardiology, who noted that she was also improved in terms of the resumption of antihypertensives. She was given YONI inhibitors as noted above, and she was noted to have chronic anemia. PAST MEDICAL HISTORY: Includes: 1. Scleroderma. 2. Chronic tobacco abuse. 3. Nonischemic cardiomyopathy with heart failure with reduced ejection fraction of 35% to 40% in June of 2016. 4. Hypertension with frequent hypertensive emergencies. 5. History of cocaine abuse. 6. Rheumatoid arthritis. MEDICATIONS: 1. She had been on in the remote past hydrocodone for pain control but not recently. 2. Also lisinopril 20 mg daily, which she said that she has been adherent to. 3. Metoprolol succinate 25 mg daily. 4. Ibuprofen as needed. 5. She also had been on hydroxychloroquine in the past and she states that she had been adherent to this. ALLERGIES: Include CODEINE, severe rash; LACTOSE, GI upset; PENICILLIN, severe hives and difficulty breathing; FLAGYL causing nausea and vomiting; AMPICILLIN with difficulty breathing; TRAMADOL causing a rash; ASPIRIN; ACETAMINOPHEN; peanuts. REVIEW OF SYSTEMS: General: She has been feeling rather weak. Cardiac: Denies chest wall pain now. She states that she feels well. Pulmonary: Denies acute shortness of breath. GI: Denies abdominal symptoms. Skin: She has severe sclerodactyly with some cutaneous ulcerations. She wants to try physical therapy and lidocaine injections for this. She has had difficulty with transportation, however. : No blood in the urine or stool. Neurologic : Generalized weakness, but it is improving. Other 14-point review of systems were reviewed and were otherwise negative. PHYSICAL EXAM: She is pleasant, in no acute distress, conversive. Vital signs initially in the ER were blood pressure of 190/129, but it has since improved; O2 sats initially 87% to 100%, now breathing normal on room air; and she was afebrile. In general, she is pleasant, in no acute distress, slightly disheveled , chronically ill, but conversive. HEENT: Normocephalic, atraumatic. Pupils equal, round, and reactive to light and accommodation. She has very poor dentition and loose teeth, and in the front part of her mouth, it was slightly dry. Neck was supple. Lymph: No adenopathy. Lungs were clear to auscultation bilaterally in the upper and lower lung puente. Cardiovascular exam revealed a regular rate and rhythm. No murmurs, rubs, or gallops. Abdomen: Soft. No abnormal tenderness. No epigastric tenderness. No guarding or rebound. Extremities: She had trace pitting edema. Skin Exam: She has significant scleroderma with sclerodactyly and tightening, taut skin around her extremities but no open ulcerations. She had slight hyperpigmentation. Neurologic: Nonfocal. Alert and oriented x4. Cranial nerves deferred. Musculoskeletal: Otherwise, she had no synovitis. DIAGNOSTIC STUDIES/LAB DATA: She had a white count initially of 21, hematocrit of 29, platelets 433,000. Iron 35, iron sats currently normal, ferritin of 35. In terms of her most recent labs, she had a hemoglobin of 8.2 and creatinine of 2.89. Hepatitis panel negative. She had a chest x-ray in the ER, which showed findings suggestive of congestive heart failure or pneumonia. ASSESSMENT AND PLAN: She is a 48-year-old woman with a history of scleroderma and sclerodactyly with significant joint restriction, admitted with possible septic condition, but also hypertensive urgency with possible scleroderma renal crisis. She is now preparing to leave against medical advice. At this point in time, she states that she has been on Plaquenil in the past. It might be reasonable just to go ahead and hold this in light of her poor adherence and cardiomyopathy; I do not think that she has taken it in a very long time. I would also avoid corticosteroids, which are dangerous in the setting of scleroderma especially if there is a renal crisis. She should, however, continue her YONI inhibitor and perhaps that should be continued to be aggressively pushed up to help manage her scleroderma renal crisis but I would avoid steroids. This management is complicated by her strong desire to go home as well as difficulty titrating this medication, so I strongly advised her, since she is definitely planning to go home, to follow up with me very closely within 3 to 4 days. It is very important that she continue the YONI inhibitor as this is the preferred treatment for scleroderma renal crisis. Of note, she has a history of hypertension and may have fibrotic cardiac tissue. She has been on lisinopril and metoprolol. She has been seen by Nephrology whose note I was noting and in terms of her sepsis, she was on Flagyl and other antibiotics Smoking cessation strongly encouraged. I also encouraged an improvement in overall living situation and avoidance of infections and we discussed the need to avoid illegal drugs especially cocaine which can adverse effects on her vascular condition and blood pressure as well as other detrimental health conditions. She will need close follow up with a dentist given her very poor oral dentition which puts her at risk for infection. She will need a flu shot and a pneumonia vaccine, and I would like to again see her very closely on followup. We would avoid immunosuppressive therapy at this point in time. [id number]/[facility] #: [id number] IVONNE
--- NOTE | 2019-03-30 00:51 | DS ---
CC: Bharati Treadwell MD; Anat Bray MD; Medhat Nichols MD; Robinson Gasca MD * DISCHARGE SUMMARY: DATE OF ADMISSION: 03/27/19 DATE OF DISCHARGE: 03/29/19 PRIMARY CARE PHYSICIAN: Robinson Gasca MD PRIMARY DIAGNOSES: 1. Scleroderma renal crisis. 2. Hypertensive emergency. 3. Possible myocardial infarction. 4. Heart failure. 5. Iron deficiency anemia. 6. Active tobacco use. 7. Anxiety. SECONDARY DIAGNOSES: 1. Remote history of cocaine abuse. 2. Rheumatoid arthritis. CONSULTS: 1. Bharati Treadwell MD of Cardiology. 2. Anat Bray MD of Nephrology. 3. Medhat Nichols MD of Psychiatry. 4. Robinson Gasca MD, Rheumatology. DISCHARGE MEDICATIONS: 1. Metoprolol succinate 25 mg daily. 2. Lisinopril 2.5 mg daily. 3. Amlodipine 5 mg daily. 4. Atorvastatin 80 mg daily. 5. Aspirin 81 mg daily. 6. Nicotine patch 14 mg every 24 hours daily. HISTORY OF PRESENT ILLNESS: Ms. Amador is a 48-year-old woman with severe scleroderma, nonischemic cardiomyopathy, pulmonary hypertension, heart failure with reduced ejection fraction, hypertension, rheumatoid arthritis, who was in her usual state of health until the day prior to presentation when she felt chills and generally "sick." She is a fairly poor historian and frequently fell asleep during the interview. She had denied fevers or shortness of breath , although per ER record that was one of her presenting symptoms along with cough. The patient reports squeezing chest pain and stomach pain that she says "came after the gas pain." Of note, the patient had [place] [facility] [place] prior with a variety of complaints including chest pain, bilateral knee pain, dizziness, diaphoresis, diarrhea, and she had refused admissions at that time. HOSPITAL COURSE: On evaluation in the emergency room, she was found to have leukocytosis to 21, anemia with hemoglobin 8.5, carbon dioxide 12, and lactic acid 2.2 with glucose 219. She was tachycardiac, afebrile, and hypertensive up to 217/143. She was referred to the hospitalist service for admission for possible pneumonia with sepsis as well as hypertensive emergency. She was given IV fluids and started on IV antibiotics and admitted for the medical service for further evaluation. She was seen and evaluated by Cardiology, who had low suspicion for atherosclerotic cardiovascular disease as a cause of her chest pain with associated elevated troponin, so they did not recommend anticoagulation and dual antiplatelets. Also, given her poor social support and history of lack of followup with Cardiology, she was deemed not a candidate for percutaneous intervention. If this wasn't atherosclerotic cardiovascular disease, it was thought her elevated troponin could be from hypertensive emergency versus an extravascular fibrosis pressing over coronary arteries from her known scleroderma. Frequently throughout hospitalization, the patient requested to leave the hospital. She reports not wanting to be in the hospital because she states that she felt well. Psychiatry was consulted to evaluate the patient for capacity to leave against medical advice as she was extensively educated on her multiple organ disease. It was deemed her insights and judgment were fair to good and Psychiatry stated that she has a mental capacity to decide to stay or leave the hospital AMA. Renal was also consulted given the patient's worsening creatinine throughout admission. It was thought that the patient was experiencing a scleroderma renal crisis. She was maintained on a low dose of her YONI inhibitor. On day of discharge AMA, the patient was seen by Nephrology again, who warned the patient of likely need for hemodialysis as well as preference for a renal biopsy, as the patient was also taking significant amounts of NSAIDs prior to admission, so it is unclear if her current renal status was from scleroderma renal crisis versus NSAID use and treatment would be vastly different for these 2 entities. However, on the day of discharge, the patient was adamant about leaving the hospital. This property underwriter, resident physician, and multiple consult services as well as nursing staff discussed with the patient need to stay admitted due to close monitoring of her blood pressure, renal function, and symptoms. However, the patient was clear about her desire to leave the hospital and understood the risks of leaving, and she was able to teach back to medical team. REVIEW OF SYSTEMS: On day of discharge, a complete 10-point review of systems was performed and significant for constipation only. The patient states she feels great. PHYSICAL EXAMINATION: Temperature 98.2, pulse rate 69, respiratory rate 18, blood pressure 122/72, oxygen saturation 98% on room air. In general, cachectic - appearing woman, in no acute distress. Alert and interactive, intermittently screams. HEENT with clear oropharynx. Moist mucous membranes. Poor dentition. Neck: No JVD. Lungs: Clear to auscultation bilaterally. Heart: Regular rate and rhythm. No murmurs, gallops, or rubs. Abdomen: Soft, nontender, nondistended. Scaphoid shape. Extremities: Warm and well perfused. No edema. Extremities very thin skin with diffuse tightness. Neuro: A and O x3. DIAGNOSTIC STUDIES AND IMAGING: WBC 7.4 on discharge, hemoglobin 8.2 with lowest 6.1 haptoglobin 175 creatinine 2.89 A1c 5.1 iron 35, TIBC 351, percent saturation 10 with ferritin 35. LDH 364 troponin peak at 0.69 TSH 4.67 CRP 1 Utox positive for cannabinoids. Hep B surface antigen negative. Hep C antibody negative. Chest x-ray with finding suggestive of congestive heart failure or pneumonia due to diffuse prominence of interstitial markings with more focal infiltrate at the right lung base. No pleural effusion seen. DISCHARGE PLAN: The patient will leave the hospital against medical advice with the assistance of her partner, Toy. She was extensively educated on risks of leaving the hospital, indications for hospitalization, and preference that she stay for close monitoring; however, she was able to state all risks of leaving and still prefers to leave the hospital, stating that she will follow up closely with her outpatient providers and plans to come for labs at [facility] in the next day or 2. Her partner states he will get her prescriptions from [facility] today, so that she can maintain 100% adherence to her prescription medication. Both her and her partner were educated on return precautions, which include but are not limited to, recurrence of chest pain, fever, shortness of breath, or burning on urination. She is to eat a healthy diet, low in processed foods, and resume activity as tolerated. She was encouraged to follow up with her assembly line leader and insurance checker and to establish care with outpatient Nephrology. She was advised to avoid further NSAID use, which she took for her rheumatoid arthritis, given her kidney disease. DISPOSITION: To home. CONDITION: Guarded. TIME SPENT: Approximately 60 minutes was spent on discharge of this patient, more than half of which was spent with care coordination at bedside for interview and exam. [id number]/[facility] #: [id number] IVONNE
[2019-03-30 16:11] LABS: Myeloperoxidase Antibody <0.2 U; Proteinase 3 <0.2 U
[2019-03-30 21:14] LABS: Complement C3 59 mg/dL (75 - 175)
[2019-03-31 16:31] LABS: Albumin 3.1 g/dL (3.4-4.7); Albumin/Globulin Ratio 0.97; Gamma Globulin 1.3 g/dL (0.6-1.6); Total Protein(PEP) 6.3 g/dL (6.3 - 7.9)
== END 2019-03-29 18:20 | disposition left against medical advice (07) | DRG 720 ==
LOC: ED 22:22 → MEDTELE 03-27 04:38
PROVIDERS: ADMIT Internal Medicine; ATTEND Internal Medicine
PROC: 30233N1 Transfusion of Nonautologous Red Blood Cells into Peripheral Vein, Percutaneous Approach (ICD-10-PCS; principal; 2019-03-27)
DX: A41.9 Sepsis, unspecified organism (principal); I21.4 Non-ST elevation (NSTEMI) myocardial infarction; J96.01 Acute respiratory failure with hypoxia; I50.31 Acute diastolic (congestive) heart failure; J18.9 Pneumonia, unspecified organism; N17.9 Acute kidney failure, unspecified; R64 Cachexia; E87.2 Acidosis; I42.9 Cardiomyopathy, unspecified; I16.1 Hypertensive emergency; Z68.1 Body mass index [BMI] 19.9 or less, adult; M34.9 Systemic sclerosis, unspecified; I27.20 Pulmonary hypertension, unspecified; I11.0 Hypertensive heart disease with heart failure; D50.9 Iron deficiency anemia, unspecified; M06.9 Rheumatoid arthritis, unspecified; G89.29 Other chronic pain; J45.909 Unspecified asthma, uncomplicated; F17.210 Nicotine dependence, cigarettes, uncomplicated; T14.8XXA Other injury of unspecified body region, initial encounter; B86 Scabies; F14.21 Cocaine dependence, in remission; F41.0 Panic disorder [episodic paroxysmal anxiety]; F41.9 Anxiety disorder, unspecified; W57.XXXA Bitten or stung by nonvenomous insect and other nonvenomous arthropods, initial encounter; Z79.1 Long term (current) use of non-steroidal anti-inflammatories (NSAID); Z79.899 Other long term (current) drug therapy; Z88.0 Allergy status to penicillin; Z88.8 Allergy status to other drugs, medicaments and biological substances; Z88.6 Allergy status to analgesic agent; Z88.1 Allergy status to other antibiotic agents; Z88.5 Allergy status to narcotic agent; Z91.010 Allergy to peanuts; Z82.49 Family history of ischemic heart disease and other diseases of the circulatory system; Y92.039 Unspecified place in apartment as the place of occurrence of the external cause; Z91.14 Patient's other noncompliance with medication regimen
CPT/HCPCS: 36415; 71045; 80048; 80053; 80061; 80307; 80320; 80329; 81003; 81015; 82570; 82728; 82803; 83010; 83036; 83516; 83520; 83540; 83550; 83605; 83615; 83690; 83880; 84155; 84156; 84165; 84443; 84484; 85014; 85018; 85025; 85045; 86038; 86078; 86140; 86160; 86225; 86803; 86850; 86900; 86901; 86922; 87040; 87070; 87086; 87205; 87340; 87899; 93005; 93306; 99285; A9270-GY; G0480; J0692; J0696; J1644; J1650; J1940; J2060; J2270; P9040

== ENCOUNTER 2019-08-15 21:40 | Emergency (ER) | payer OTHER ==
--- NOTE | 2019-08-15 22:13 | ED ---
HPI Chest Pain - HPI Summary HPI Summary: Patient complains of 2 episodes of chest pain and SOB while arguing with her boyfriend today. Chest pain located base of sternum, numbness and tingling in left arm. History of chest pain with stress and anxiety. Shortness of breath resolved, and Chest pain resolving while waiting here in the ED. 08/23 during history of present illness. History of MT 03/2019. Given ASA by EMS. Denies fever, cough, sore throat, and/V/D, abdominal pain, change in urine, change in BM. - History of Current Complaint Chief Complaint: EDChestPainROMI Time Seen by Provider: 08/15/19 22:10 Hx Obtained From: Patient Onset/Duration: Started Hours Ago Timing: Intermittent, Lasting Minutes Initial Severity: Moderate Current Severity: Mild Pain Intensity: 2 Pain Scale Used: 0-10 Numeric Chest Pain Location: Lower Sternal Chest Pain Radiates To:: Arm Character: Tightness Aggravating Factor(s): Other: Alleviating Factor(s): Spontaneous Resolution Associated Signs and Symptoms: Positive: Chest Pain, Shortness of Breath - Additional Pertinent History Primary Care Physician: [id number] - Allergy/Home Medications Allergies/Adverse Reactions: Allergies Allergy/AdvReac Type Severity Reaction Status Date / Time codeine Allergy Severe Rash Verified 02/18/19 21:52 lactose Allergy Severe GI Upset Verified 02/18/19 21:52 Penicillins Allergy Severe Hives/Diff. Verified 02/18/19 21:52 Breathing/I tching metronidazole Allergy Mild Nausea And Verified 02/18/19 21:52 Vomiting ampicillin Allergy Unknown Difficulty Verified 02/18/19 21:52 Breathing tramadol Allergy Unknown Rash Verified 02/18/19 21:52 aspirin AdvReac Mild Heartburn Verified 02/18/19 21:52 acetaminophen AdvReac Unknown GI Upset Verified 02/18/19 21:52 peanut/cashews Allergy Severe rash, Uncoded 02/18/19 21:52 difficulty breathing wool Allergy Severe Hives Uncoded 02/18/19 21:52 berries Allergy Intermediate Rash Uncoded 02/18/19 21:52 PMH/Surg Hx/FS Hx/Imm Hx Endocrine/Hematology History: Reports: Hx Blood Transfusions, Hx Diabetes Denies: Hx Anemia Cardiovascular History: Reports: Hx Cardiomegaly, Hx Congestive Heart Failure, Hx Hypertension, Other Cardiovascular Problems/Disorders - cardiomyopathy Respiratory History: Reports: Hx Asthma, Hx Chronic Obstructive Pulmonary Disease (COPD), Hx Pleural Effusion, Hx Sleep Apnea GI History: Reports: Hx Gastroesophageal Reflux Disease Musculoskeletal History: Reports: Hx Arthritis - rheumatoid, Other Musculoskeletal History - scleroderma Sensory History: Reports: Hx Contacts or Glasses Denies: Hx Hearing Aid Opthamlomology History: Reports: Hx Contacts or Glasses Neurological History: Reports: Hx Headaches, Hx Migraine, Hx Seizures Psychiatric History: Reports: Hx Anxiety, Hx Panic Disorder, Hx Substance Abuse - Cancer History Cancer Type, Location and Year: uterine - per pt. Hx Chemotherapy: No Hx Radiation Therapy: No - Surgical History Surgery Procedure, Year, and Place: "removal of uterine cancer" - per pt. - Immunization History Date of Tetanus Vaccine: unknown Date of Influenza Vaccine: 2013 Infectious Disease History: No Infectious Disease History: Denies: Traveled Outside the [place] in Last 30 Days - Family History Known Family History: Positive: Cardiac Disease Negative: Hypertension, Diabetes - Social History Alcohol Use: None Hx Substance Use: Yes Substance Use Type: Reports: Marijuana Substance Use Comment - Amount & Last Used: infrequent Hx Tobacco Use: Yes Smoking Status (MU): Light Every Day Tobacco Smoker Type: Cigarettes Amount Used/How Often: 1-2 CIGARETTES, smoked 32 years Length of Time of Smoking/Using Tobacco: 27 YEARS Have You Smoked in the Last Year: No Review of Systems Constitutional: Negative Eyes: Negative ENT: Negative Positive: Chest Pain Positive: Shortness Of Breath Gastrointestinal: Negative Genitourinary: Negative Musculoskeletal: Negative Skin: Negative Neurological: Negative Psychological: Normal All Other Systems Reviewed And Are Negative: Yes Physical Exam - Summary Physical Exam Summary: Sternum mildly tender to palpation. Triage Information Reviewed: Yes Vital Signs On Initial Exam: Initial Vitals Temp Pulse Resp BP Pulse Ox 98.3 F 66 18 165/100 97 08/15/19 22:03 08/15/19 22:03 08/15/19 22:03 08/15/19 22:03 08/15/19 22:03 Vital Signs Reviewed: Yes Appearance: Positive: Well-Appearing Skin: Positive: Warm Head/Face: Positive: Normal Head/Face Inspection Eyes: Positive: Normal Neck: Positive: Supple Respiratory/Lung Sounds: Positive: Clear to Auscultation Cardiovascular: Positive: Normal Abdomen Description: Positive: Nontender Musculoskeletal: Positive: Normal Neurological: Positive: Normal Psychiatric: Positive: Normal AVPU Assessment: Alert - [place] Coma Scale Best Eye Response: 4 - Spontaneous Best Motor Response: 6 - Obeys Commands Best Verbal Response: 5 - Oriented Coma Scale Total: 15 Procedures - Sedation Patient Received Moderate/Deep Sedation with Procedure: No Diagnostics - Vital Signs Vital Signs Temp Pulse Resp BP Pulse Ox 08/15/19 22:03 98.3 F 66 18 165/100 97 - Laboratory Result Diagrams: 08/15/19 22:25 08/15/19 22:25 Lab Statement: Any lab studies that have been ordered have been reviewed, and results considered in the medical decision making process. Chest Pain Course/Dx - Course Course Of Treatment: Patient complains of 2 episodes of chest pain and SOB while arguing with her boyfriend today. Chest pain located base of sternum, numbness and tingling in left arm. History of chest pain with stress and anxiety. Shortness of breath resolved, and Chest pain resolving while waiting here in the ED. 08/23 during history of present illness. History of [place] 03/2019. Given ASA by EMS. Denies fever, cough, sore throat, and/V/D, abdominal pain, change in urine, change in BM. Vital signs within normal limits. Labs unremarkable. EKG sinus rhythm, heart rate of 71, normal P axis. Serial troponins negative. Chest x-ray negative. Heart score 3 - Diagnoses Provider Diagnoses: Atypical chest pain Discharge ED - Sign-Out/Discharge Documenting (check all that apply): Patient Departure - Discharge Plan Condition: Stable Disposition: HOME Patient Education Materials: Chest Pain (ED) Referrals: Magdiel Haque MD [Primary Care Provider] - Additional Instructions: Follow-up with primary care. Return to the ED for any new or worsening symptoms. - Billing Disposition and Condition Condition: STABLE Disposition: Home
[2019-08-15 22:25] LABS: Urine Appearance Cloudy; Urine Bilirubin Negative (Negative); Urine Blood 1+ (Negative); Urine Color Yellow; Urine Glucose Negative (Negative); Urine Ketones Negative (Negative); Urine Nitrite Negative (Negative); Urine Protein Negative (Negative); Urine Specific Gravity 1.013 (1.010-1.030); Urine Urobilinogen Negative (Negative)
[2019-08-15 22:27] LABS: Urine Bacteria 1+ (Absent); Urine Red Blood Cell 1+(3-5/hpf) (Absent); Urine Squamous Epithelial Cell Present (Absent); Urine White Blood Cell 2+(11-20/hpf) (Absent)
[2019-08-15 22:31] LABS: ABS Basophils 0.1 10^3/ul (0-0.2); ABS Eosinophils 0.2 10^3/ul (0-0.6); ABS Lymphocytes 1.8 10^3/ul (1.0-4.8); ABS Monocytes 0.5 10^3/ul (0-0.8); ABS Neutrophils 3.4 10^3/ul (1.5-7.7); Eosinophil % 4.1 %; Hematocrit 29 % (35-47); Hemoglobin 9.6 g/dL (12.0-16.0); Lymphocyte % 29.5 %; Mean Corpuscular HGB Conc 33 g/dL (31-36); Mean Corpuscular Hemoglobin 28 pg (27-31); Mean Corpuscular Volume 84 fL (80-97); Mean Platelet Volume 9.6 fL (7.4-10.4); Nucleated Red Blood Cells % 0.1; Platelet Count 198 10^3/uL (150-450); Red Cell Distribution Width 18 % (10-15)
--- OUTSIDE RECORDS SUMMARY | 2019-08-15 22:42 | XMS REPORT | Continuity of Care Document ---
:1970 External Reference #:[id number] Author Name Magdiel Haque MD (transmitted by agent of provider Jacinta Beard) Address [address] [place] [id number] Care Team Providers Name Role Phone Nitin Antonio MD - Urology Care Team Information Roughing Mill Operator [phone] Guanakito Kemp MD - Dermatology Care Team Information [employer]ing [employer] Operator [phone] Robinson Horne MD - Ophthalmology Care Team Information Roughing [employer] Operator [phone] Magdiel Haque MD - Hospitalist Care Team Information Roughing Mill Operator [phone] Problems Active Problems Provider Date Systemic sclerosis Giuliano Easley M.D. Onset: 05/26/2015 Essential hypertension Giuliano Easley M.D. Onset: 08/16/2015 Cardiomyopathy Giuliano Easley M.D. Onset: 08/16/2015 Microscopic hematuria Giuliano Easley M.D. Onset: 08/16/2015 Abnormal weight loss Denis Sewell M.D. Onset: 12/28/2015 Gastroesophageal reflux disease Denis Sewell M.D. Onset: 01/12/2016 Allergic rhinitis Denis Sewell M.D. Onset: 01/12/2016 Disorder of skin and/or subcutaneous tissue Denis Sewell M.D. Onset: Anemia Denis Sewell M.D. Onset: 04/11/2017 Infectious colitis, enteritis and Denis Sewell M.D. Onset: 01/07/2018 gastroenteritis Arthralgia of the pelvic region and thigh Denis Sewell M.D. Onset: 02/03 Chest pain Denis Sewell M.D. Onset: 02/03/2018 Asthma without status asthmaticus Denis Sewell M.D. Onset: 02/03/2018 Tobacco user Magdiel Haque MD Onset: 07/05/2019 Acute renal failure syndrome Magdiel Haque MD Onset: 07/05/2019 Social History Type Date Description Comments Sex Unknown Tobacco Use Start: Unknown Patient is a current cigarette smoker, smokes some days Smoking Status Reviewed: 07/05/19 Patient is a current cigarette smoker, smokes some days ETOH Use Denies alcohol use Tobacco Use Start: Unknown Light tobacco smoker (10 or fewer cigarettes/day) Recreational Drug Use Formerly used Cocaine sporadically Recreational Drug Use Current Drug User marijuana for pain Exercise Type/Frequency Does not exercise Allergies, Adverse Reactions, Alerts Active Allergies Reaction Severity Comments Date Penicillin 05/26/2015 Ampicillin 05/26/2015 Bactrim itchy rash 06/28/2015 Aspirin GI upset 08/16/2015 Tramadol rash Severe 10/04/2015 Medications Active Medications SIG Qnty Indications Ordering Date Provider Acetaminophen ER take every 6 120tabs M25.561 Magdiel Haque MD 07/05/2019 650mg hours as needed Tablets ER for pain. Nicotine use 1 patch 28units F17.210 Magdiel Haque MD 07/05/2019 14mg/24HR daily. Patches 24HR Lisinopril 1 by mouth every 30tabs I10 Magdiel Haque MD 07/05/2019 5mg Tablets day Blood Pressure Cuff use to measure 1units I10 Magdiel Haque MD 07/05/2019 Misc the blood pressure daily. Methyl Salicylate Apply twice a 240gm M25.561 Magdiel Haque MD 07/05/2019 25% day to knee Cream Amlodipine Besylate 1 by mouth every 90tabs I16.9 Nicolofia Favian, 2018 5mg day CHOPPED STRAND OPERATOR Tablets Atorvastatin Calcium take 1 tablet by 90tabs I16.9 Nicolofisweta Ballesteros, 2018 80mg mouth every CHOPPED STRAND OPERATOR Tablets night Metoprolol Succinate 1 by mouth every 90tabs I42.9 Nicolofia Favian, 2017 ER day CHOPPED STRAND OPERATOR 25mg Tablets ER 24HR I16.9 Neoprene Patella Knee use daily as needed 2units M34.9 Robinson Gasca, Support/Medium for right knee M.D. [facility] stabilization Wheelchair Please provide leg 2units M34.9 Robinson Gasca, 04/30/2017 [facility] supports for her M.D. wheelchair Zyrtec Allergy take one 30caps [place] 02/28/2017 10mg capsule/tablet daily Pachikara, Capsules by mouth as needed M.D. for allergies Wheelchair for daily use 1units M54.5 [place] 02/28/2017 [facility] Josue Sewell Blood Pressure Monitor check bp daily 1units I16.9 [place] 02/28/2017 Auto Inflate [facility] Ensure Complete patient can have 3 - 90units [place] 11/15/2016 Nutrition Shake 4 cans per day - she Fatou Sewell may ask for this Josue herself. Pantoprazole Sodium 1 in the morning 30tabs K21.9 [place] 10/15/2016 40mg empty stomach Pachikara, Tablets DR Salas Proair HFA 2 puffs ih every 4 8.5units Z01.818 Magdiel Haque MD 10/15/2016 108(90Base) hours as needed mcg/Act Aerosol Plaquenil 1 by mouth every day 90tabs M34.9 Jorge L Ballesteros, 11/07/2015 200mg Tablets CHOPPED STRAND OPERATOR Aspirin 81 Low Dose 1 by mouth every day 90units Magdiel Haque MD 81mg Chewtabs History Medications Diclofenac Sodium apply 2 grams 100gm M25.561 Jorge L Ballesteros, 06/08/2019 - 1% on knee twice [facility] 07/05/2019 Gel daily Lisinopril 1 tab by mouth 90tabs I16.9 Jorge L Ballesteros, 04/13/2019 - 2.5mg day [facility] 07/05/2019 Tablets Aspercreme apply 4 gram to 100mg M25.569 Jorge L Ballesteros, 04/13/2019 - W/Lidocaine hands twice a [employer]AND OPERATOR 04/13/2019 4% Cream day as needed Aspercreme apply 4 gram to 100mg M25.569 Jorge L Ballesteros, 04/13/2019 - W/Lidocaine knees twice a [employer] OPERATOR 07/05/2019 4% Cream day as needed Magnesium Oxide 1 by mouth 90tabs E83.42 Nicolofia Favian, 04/13/2019 - 400mg every day [employer] OPERATOR 07/05/2019 Tablets Nicotine Transdermal F17.210 Other Ordering 04/13/2019 - System Step 2 Provider 07/05/2019 14mg/24HR Patches 24HR Immunizations CPT Code Status Date Vaccine Reaction Lot # [id number] Given 06/08/2019 Influenza Virus Vaccine, Patient denies ever [id number] Quadrivalent, Split, having a serious Preservative Free reaction to eggs or egg products, ever having a serious reaction or other problem after getting influenza vaccination, ever being diagnosed with [id number], possibility of being , fever or moderate/severe illness today, allergy to latex. Patient verifies "I have read or had explained to me the information about influenza and influenza vaccine. I have had a chance to ask questions that were answered to my satisfaction. I believe I understand the benefits and risks of influenza vaccine and ask that the vaccine be given to me." Patient tolerated injection w/ no immediate adverse effect. 63160 Given 04/11/2017 Influenza Virus Vaccine, no immediate reaction [id number] Quadrivalent, Split, noted Preservative Free 49487 Given 02/28/2017 Pneumonia Vaccine [id number] Vital Signs Date Vital Result Comment 07/05/2019 1:55pm Height 63 inches 5'3" Weight 74.12 lb Heart Rate 88 /min BP Systolic 171 mmHg BP Diastolic 105 mmHg Body Temperature 98.6 F O2 % BldC Oximetry 91 % BMI (Body Mass Index) 13.1 kg/m2 06/08/2019 1:02pm Height 63 inches 5'3" Weight 79.00 lb Heart Rate 88 /min BP Systolic 140 mmHg BP Diastolic 88 mmHg Body Temperature 99.4 F O2 % BldC Oximetry 99 % BMI (Body Mass Index) 14.0 kg/m2 Results Test Acquired Date Facility Test Result H/L Range Note CBC Auto 04/14/2019 [facility] White Blood 9.1 10^3/uL Normal 3.5-10.[address] [place] [address] [phone] Red Blood Count 3.77 10^6/uL Normal 3.70-4.87 Hemoglobin 9.7 g/dL Low 12.0-16.0 Hematocrit 30 % Low 35-47 Mean Corpuscular Volume 80 fL Normal 80-97 Mean Corpuscular Hemoglobin 26 pg Low 27-31 Mean Corpuscular HGB Conc 32 g/dL Normal 31-36 Red Cell Distribution Width 19 % High 10-15 Platelet Count 256 10^3/uL Normal 150-450 Mean Platelet Volume 10.2 fL Normal 7.4-10.4 Abs Neutrophils 5.2 10^3/uL Normal 1.5-7.7 Abs Lymphocytes 2.5 10^3/uL Normal 1.0-4.8 Abs Monocytes 0.6 10^3/uL Normal 0-0.8 Abs Eosinophils 0.7 10^3/uL High 0-0.6 Abs Basophils 0.1 10^3/uL Normal 0-0.2 Abs Nucleated RBC 0.0 10^3/uL Granulocyte % 56.8 % Lymphocyte % 27.2 % Monocyte % 6.9 % Eosinophil % 7.8 % Basophil % 1.3 % Nucleated Red Blood Cells % 0.1 Comp Metabolic 04/14/2019 [facility] Sodium 136 mmol/L Normal 135-[address] [place] [address] [phone] Chloride 108 mmol/L Normal 101-111 Co2 Carbon Dioxide 21 mmol/L Low 22-32 Glucose 86 mg/dL Normal 70-100 Blood Urea Nitrogen 45 mg/dL High 6-24 Creatinine 1.68 mg/dL High 0.51-0.95 BUN/Creatinine Ratio 26.8 High 8-20 Calcium 9.2 mg/dL Normal 8.6-10.3 Total Protein 7.2 g/dL Normal 6.4-8.9 Albumin 4.2 g/dL Normal 3.2-5.2 Globulin 3.0 g/dL Normal 2-4 Albumin/Globulin Ratio 1.4 Normal 1-3 Total Bilirubin 0.40 mg/dL Normal 0.2-1.0 Alkaline Phosphatase 68 U/L Normal 34-104 Alt 6 U/L Low 7-52 Ast 14 U/L Normal 13-39 Egfr Non- 32.8 >60 Egfr 39.7 >60 1 Potassium 5.2 mmol/L High 3.5-5.0 Anion Gap 7 mmol/L Normal 2-11 Iron & Iron Binding 04/14/2019 [facility] Iron 70 g/dL Normal 50-[address] [place] [address] [phone] Unsaturated Iron Binding < 336 g/dL Total Iron Binding Capacity 351 g/dL Normal 250-450 Transferrin 251 mg/dL Normal 203-362 % Iron Saturation 20 % Normal 15-55 Laboratory test 04/14/2019 [facility] Ferritin 36.1 ng/mL Normal 11-[address] [place] [address] [phone] Complement C3 85 mg/dL 75 - 175 2 Complement C4 16 mg/dL 14 - 40 3 Laboratory test 04/14/2019 [facility] C Reactive < 1.00 Normal <8.01 finding [address] [place] [place] Protein mg/[place] [address] [phone] Erythrocyte Sed Rate 32 mm/Hr High 0-19 Vitamin B12 04/14/2019 [facility] Vitamin B12 551 pg/mL Normal 180-914 [address] [place] [address] [phone] Folic Acid (Folate) 8.14 ng/mL >3.99 Laboratory test 04/14/2019 [facility] Vitamin D 16.4 ng/mL Low 20-[address] Total 25(Oh) [place] [address] [phone] Magnesium 1.9 mg/dL Normal 1.9-2.7 1 Because ethnic data is not always readily available, this report includes an eGFR for both -Americans and non- Americans. The National Kidney Disease Education Program (NKDEP) does not endorse the use of the MDRD equation for patients that are not between the ages of 18 and 70, are , have extremes of body size, muscle mass, or nutritional status, or are non- or non-. According to the National Kidney Foundation, irrespective of diagnosis, the stage of the disease is based on the level of kidney function: Stage Description GFR(mL/min/1.73 m(2)) 1 Kidney damage with normal or decreased GFR 90 2 Kidney damage with mild decrease in GFR 60-89 3 Moderate decrease in GFR 30-59 4 Severe decrease in GFR 15-29 5 Kidney failure <15 (or dialysis) 2 Test Performed by: [place] [id number] Wagon Drill Operator: Joel Griffin M.D. Ph.D.; CLIA# [id number] 3 Test Performed by: [place] [address] Wagon Drill Operator: Joel Griffin M.D. Ph.D.; CLIA# [id number] 4 Normal Range 180 to 914 Indeterminate Range 145 to 180 Deficient Range <145 5 Total 25-Hydroxyvitamin D2 and D3 (25-OH-VitD) <10 ng/mL (severe deficiency) 10-19 ng/mL (mild to moderate deficiency) 20-50 ng/mL (optimum levels) 51-80 ng/mL (increased risk of hypercalciuria) >80 ng/mL (toxicity possible) Procedures Date Code Description Status 03/28/2019 37087 ECHO Transthorasic Realtime 2D W Doppler & Color Flow Hosp Completed 03/27/2019 19725 EKG, Interpretation Only Completed Medical Devices Description No Information Available Encounters Type Date Location Provider Dx Diagnosis Office Visit 06/08/2019 Rheumatology Claire Miller4.9 Systemic 1:[facility] [employer] STRAND OPERATOR sclerosis, unspecified M25.561 Pain in right knee I10 Essential (primary) hypertension N17.9 Acute kidney failure, unspecified E83.42 Hypomagnesemia Z91.19 Patient's noncompliance w oth medical treatment and regimen F17.210 Nicotine dependence, cigarettes, uncomplicated R30.0 Dysuria Z79.899 Other salvage determiner (current) drug therapy Z23 Encounter for immunization Office Visit 04/13/2019 10:30a Rheumatology Jorge L M34.9 [facility] [place] sclerosis, unspecified I16.9 Hypertensive crisis, unspecified N17.9 Acute kidney failure, unspecified I42.9 Cardiomyopathy, unspecified E83.42 Hypomagnesemia M25.569 Pain in unspecified knee K21.9 Gastro-esophageal reflux disease without esophagitis Z91.19 Patient's noncompliance w oth medical treatment and regimen F17.210 Nicotine dependence, cigarettes, uncomplicated Office Visit 03/29/2019 8:51a Rheumatology Robinson M34.9 [facility] Gasca M.D. sclerosis, unspecified I16.9 Hypertensive crisis, unspecified N17.9 Acute kidney failure, unspecified Z79.899 Other intermediate (current) drug therapy Office Visit 03/29/2019 8:56a [facility] Johanna I16.1 Hypertensive Assoc,pan Wolfe MD emergency Hospitalists M34.9 Systemic sclerosis, unspecified I50.9 Heart failure, unspecified D50.9 Iron deficiency anemia, unspecified Office Visit 03/28/2019 [place] Bharati Treadwell, R94.31 Abnormal 11:21a Cardiology Fidencio Salas electrocardiogram Wire Winding Machine Operator [ECG] [EKG] I42.9 Cardiomyopathy, unspecified I10 Essential (primary) hypertension M34.9 Systemic sclerosis, unspecified N18.9 Chronic kidney disease, unspecified Office Visit 03/28/2019 8:55a [facility] Shari Dill, N17.9 Acute kidney Assoc,pan BOONE failure, Hospitalists unspecified D64.9 Anemia, unspecified F41.9 Anxiety disorder, unspecified M34.9 Systemic sclerosis, unspecified Office Visit 03/27/2019 [place] Bharati Treadwell, I42.9 Cardiomyopathy, 8:25a [facility] unspecified Wire Winding Machine Operator I10 Essential (primary) hypertension L94.9 Localized connective tissue disorder, unspecified Z91.128 Patient's intentl undrdose of meds regimen for oth reason N17.9 Acute kidney failure, unspecified Office Visit 03/27/2019 8:55a [facility] Magdiel Haque, I16.0 Hypertensive Assoc,pan BOONE urgency Hospitalists R07.89 Other chest pain F41.9 Anxiety disorder, unspecified Assessments Date Code Description Provider 07/05/2019 M34.9 Systemic sclerosis, unspecified Magdiel Haque MD 07/05/2019 I10 Essential (primary) hypertension Magdiel Haque MD 07/05/2019 N17.9 Acute kidney failure, unspecified Magdiel Haque MD 07/05/2019 F17.210 Nicotine dependence, cigarettes, Magdiel Haque MD uncomplicated 07/05/2019 M25.561 Pain in right knee Magdiel Haque MD 07/05/2019 D64.9 Anemia, unspecified Magdiel Haque MD 07/05/2019 R30.0 Dysuria Magdiel Haque MD 06/08/2019 M34.9 Systemic sclerosis, unspecified Zsofia Favian, CH[employer]PED STRAND OPERATOR 06/08/2019 M25.561 Pain in right knee Zsofia Favian, CH[employer]PED STRAND OPERATOR 06/08/2019 I10 Essential (primary) hypertension Zsofia Favian, [employer]PED STRAND OPERATOR 06/08/2019 N17.9 Acute kidney failure, unspecified Zsofia Favian, CH[employer]PED STRAND OPERATOR 06/08/2019 E83.42 Hypomagnesemia Zsofia Favian, CH[employer]PED STRAND OPERATOR 06/08/2019 Z91.19 Patient's noncompliance with other medical Zsofia Favian, CH[employer]PED STRAND OPERATOR treatment and regimen 06/08/2019 F17.210 Nicotine dependence, cigarettes, Zsofia Favian, CH[employer]PED STRAND OPERATOR uncomplicated 06/08/2019 R30.0 Dysuria Zsofia Favian, [facility] 06/08/2019 Z79.899 Other intermediate (current) drug therapy Zsofia Favian, [facility] 06/08/2019 Z23 Encounter for immunization Zsofia Favian, CH[employer]PED STRAND OPERATOR 04/13/2019 M34.9 Systemic sclerosis, unspecified Zsofia Favian, CH[employer]PED STRAND OPERATOR 04/13/2019 I16.9 Hypertensive crisis, unspecified Zsofia Favian, CH[employer]PED STRAND OPERATOR 04/13/2019 N17.9 Acute kidney failure, unspecified Zsofia Favian, CH[employer] STRAND OPERATOR 04/13/2019 I42.9 Cardiomyopathy, unspecified Zsofia Favian, CH[employer]PED STRAND OPERATOR 04/13/2019 E83.42 Hypomagnesemia Zsofia Favian, CH[employer]PED STRAND OPERATOR 04/13/2019 M25.569 Pain in unspecified knee Zsofia Favian, CHOPPED STRAND OPERATOR 04/13/2019 K21.9 Gastro-esophageal reflux disease without Zsofia Favian, CHOPPED STRAND OPERATOR esophagitis 04/13/2019 Z91.19 Patient's noncompliance with other medical Zsofia Favain, CHOPPED STRAND OPERATOR treatment and regimen 04/13/2019 F17.210 Nicotine dependence, cigarettes, Zsofia Favian, CHOPPED STRAND OPERATOR uncomplicated 03/29/2019 M34.9 Systemic sclerosis, unspecified Robinson Gasca M.D. 03/29/2019 I16.1 Hypertensive emergency Johanna Wolfe MD 03/29/2019 I16.9 Hypertensive crisis, unspecified Robinson Gasca M.D. 03/29/2019 M34.9 Systemic sclerosis, unspecified Johanna Wolfe MD 03/29/2019 N17.9 Acute kidney failure, unspecified Robinson Gasca M.D. 03/29/2019 I50.9 Heart failure, unspecified Johanna Wolfe MD 03/29/2019 Z79.899 Other intermediate (current) drug therapy Robinson Gasca M.D. 03/29/2019 D50.9 Iron deficiency anemia, unspecified Johanna Wolfe MD 03/28/2019 N17.9 Acute kidney failure, unspecified Shari Rowland MD 03/28/2019 R94.31 Abnormal electrocardiogram [ECG] [EKG] Bharati Treadwell M.D. 03/28/2019 D64.9 Anemia, unspecified Shari Rowland MD 03/28/2019 I42.9 Cardiomyopathy, unspecified Bharati Treadwell M.D. 03/28/2019 F41.9 Anxiety disorder, unspecified Shari Rowland MD 03/28/2019 I10 Essential (primary) hypertension Bharati Treadwell M.D. 03/28/2019 M34.9 Systemic sclerosis, unspecified Shari Rowland MD 03/28/2019 M34.9 Systemic sclerosis, unspecified Bharati Treadwell M.D. 03/28/2019 N17.9 Acute kidney failure, unspecified Anat Bray MD 03/28/2019 N18.9 Chronic kidney disease, unspecified Bharati Treadwell M.D. 03/28/2019 E46 Unspecified protein-calorie malnutrition Anat Bray MD 03/28/2019 I16.1 Hypertensive emergency Anat Bray MD 03/28/2019 Z91.19 Patient's noncompliance with other medical Anat Bray MD treatment and regimen 03/27/2019 R94.31 Abnormal electrocardiogram [ECG] [EKG] Bharati Treadwell M.D. 03/27/2019 I16.0 Hypertensive urgency Magdiel Haque MD 03/27/2019 R07.89 Other chest pain Magdiel Haque MD 03/27/2019 F41.9 Anxiety disorder, unspecified Magdiel Haque MD 03/27/2019 I42.9 Cardiomyopathy, unspecified Bharati Treadwell M.D. 03/27/2019 I10 Essential (primary) hypertension Bharati Treadwell M.D. 03/27/2019 L94.9 Localized connective tissue disorder, Bharati Treadwell M.D. unspecified 03/27/2019 Z91.128 Patient's intentional underdosing of Bharati Treadwell M.D. medication regimen for other reason 03/27/2019 N17.9 Acute kidney failure, unspecified Bharati Treadwell M.D. Plan of Treatment Future Appointment(s):08/03/2019 1:30 pm - [facility]07/05/2019 - Magdiel Haque, MDM34.9 Systemic sclerosis, [id number] Essential (primary) hypertensionNew Medication:Lisinopril 5 mg - 1 by mouth every dayBlood Pressure Cuff - use to measure the blood pressure daily.N17.9 Acute kidney failure, abqbhihqhpzA01.210 Nicotine dependence, cigarettes, uncomplicatedNew Medication:Nicotine 14 mg/24HR - use 1 patch daily.M25.561 Pain in right kneeNew Medication:Acetaminophen ER 650 mg - take every 6 hours as needed for pain. -Methyl Salicylate 25 % - Apply twice a day to kneeNew Therapy:Physical TherapyComments:Please get the knee xrayD64.9 Anemia , lwwcjolrwsrR37.0 Dysuria Functional Status Description No Information Available Mental Status Description No Information Available Referrals Refer to Dr Reason for Referral Status Appt Date Bharati rTeadwell MD Sent [address] [place] [address] [phone]
[2019-08-15 22:49] LABS: ALT 4 U/L (7-52); AST 9 U/L (13-39); Albumin 3.8 g/dL (3.2-5.2); Albumin/Globulin Ratio 1.2 (1-3); Alkaline Phosphatase 84 U/L (34-104); Anion Gap 6 mmol/L (2-11); BUN/Creatinine Ratio 33.3 (8-20); Blood Urea Nitrogen 34 mg/dL (6-24); C Reactive Protein < 1.00 mg/L (<8.01); CO2 Carbon Dioxide 21 mmol/L (22-32); Calcium 8.7 mg/dL (8.6-10.3); Chloride 108 mmol/L (101-111); EGFR African American 70.6 (>60); EGFR Non-African American 58.3 (>60); Globulin 3.1 g/dL (2-4); Glucose 89 mg/dL (70-100); Potassium 4.1 mmol/L (3.5-5.0); Sodium 135 mmol/L (135-145); Total Protein 6.9 g/dL (6.4-8.9)
[2019-08-15 22:51] LABS: Troponin I 0.01 ng/mL (<0.03)
[2019-08-15 23:13] LABS: TSH (Thyroid Stimulating Horm) 2.18 mcIU/mL (0.34-5.60)
[2019-08-16 01:39] VITALS: BP 118/62
--- NOTE | 2019-08-18 12:52 | ED ---
Imaging and Labs Follow Up Follow Up Type: Labs/Cultures Labs/Culture Result: Urine culture growing 25-50k citrobacter. Patient Communication/Plan: Pt. seen in ED for chest pain. No report of urinary sxs. Urine culture growing < 100k bacteria. Will not treat at this time. Provider Diagnoses: Atypical chest pain
== END 2019-08-16 01:38 | disposition home or self-care (01) ==
LOC: ED 21:40
DX: R07.89 Other chest pain (principal); R06.02 Shortness of breath; E11.9 Type 2 diabetes mellitus without complications; I11.0 Hypertensive heart disease with heart failure; I50.9 Heart failure, unspecified; Z79.82 Long term (current) use of aspirin; Z79.899 Other long term (current) drug therapy; Z88.6 Allergy status to analgesic agent; Z91.011 Allergy to milk products; Z88.5 Allergy status to narcotic agent; Z91.018 Allergy to other foods; Z91.010 Allergy to peanuts; Z88.0 Allergy status to penicillin; Z88.8 Allergy status to other drugs, medicaments and biological substances; Z91.09 Other allergy status, other than to drugs and biological substances; Z87.891 Personal history of nicotine dependence
CPT/HCPCS: 36415; 71045; 80053; 81003; 81015; 83605; 83690; 84443; 84484; 84702; 85025; 86140; 87077; 87086; 87186; 93005; 99282